=== PATIENT | male | born 1960 | race Caucasian/White ===

== ENCOUNTER 2020-03-13 11:41 | Day surgery (SDC) | payer OTHER, SELFPAY ==
--- NOTE | 2020-03-13 06:13 | W.COLOREPORT ---
Date of service: 03/13/20 Time of Service: 12:24 Colonoscopy Report Date of procedure: 03/13/20 Pre-op diagnosis general: Colon Cancer Screening Post-op diagnosis procedure note: other (multiple polyps) Procedure: Colonoscopy with polypectomy Surgeon: Gertrudis Frazier Anesthesia proc note operative: other (General/ ASA 2/ Piedad Austin CRNA) Estimated blood loss (mL): 5 Pathology: other (Ascending polyp x1, transverse polyp x3, descending polyp, sigmoid polyp x2, rectal polyp x1) Complications: None Disposition: same day Indications: Mr. Steven is a pleasant 60 year old male who was seen back in September for a screening colonoscopy. It was cancelled due to COVID. He is back today for an update to his H&P. He has had no changes in bowel habits, no melena or hematochezia, no unintentional weight loss, no abdominal pain, and no family history of colon cancer. He has diabetes which is well controlled with diet and metformin. He has high blood pressure which is well controlled on atenolol and losartan hydrochlorothiazide. He has no history of MIs or strokes. He has had no chest pain. He is active and is able to walk up a couple flights of stairs without shortness of breath or chest pain. Prep: Miralax/Dulcolax Procedure Start Time: 12:24 Procedure End Time: 13:04 Retraction Time: 33 minutes Findings: multiple polyps Procedure Description: After informed consent was obtained the patient was taken to the procedure room and placed in a left decubitous position. Monitors were applied and a time out was done. The patients name, date of , procedure, allergies to medications and metal in their body was reviewed. The patient was then sedated. Once sedated and comfortable a rectal exam was done. External exam was normal. Internal exam revealed a normal sphincter tone and no palpable masses. The prostate felt smooth. The scope was then introduced and retro-flexed. No internal hemorrhoids were identified. The scope was then advanced to the cecum without difficulty. The ileocecal valve and appendiceal orifice were identified. The prep was good. The scope was then slowly retracted over 33 minutes back into the rectum. Polyps were removed with cold forceps in the ascending colon, transverse colon x3, descending colon, sigmoid colon x2 and rectum. The scope was removed and the patient was woken up and taken back to Same day surgery in stable condition. The patient tolerated the procedure well and there were no immediate complications. Follow up: The patient should follow up in 3-5 years unless they develop changes in bowel habits or other new gastrointestinal complaints.
--- NOTE | 2020-03-13 06:14 | W.PM.DSUDISC ---
Discharge Plan Disposition Patient Disposition: HOME Condition: Good Discharge Details Reason For Visit: Colonoscopy Attending Provider: Gertrudis Frazier Primary Care Provider: Yoan Dorsey Home Meds and New Rx's Prescriptions: Continued coenzyme Q10 125 mg capsule 125 mg PO BID RF: 0 omega 0-rtr-nda-fish oil 1,000 mg (120 mg-180 mg) capsule 2 cap PO BID RF: 0 multivitamin Tablet 1 tab PO DAILY RF: 0 Prostate 2.4 1,200-15-35 drmg-qxjj-nxn capsule 1 cap PO DAILY RF: 0 losartan-hydrochlorothiazide 100-12.5 mg tablet 1 tab PO DAILY Qty: 90 RF: 3 atenolol 100 mg tablet 100 mg PO DAILY Qty: 90 RF: 3 (DME) blood sugar diagnostic Strip See Rx Instructions .ROUTE .MEDSUPPLY Qty: 100 RF: 3 Discontinued polyethylene glycol 3350 17 gram/dose powder 238 g PO ONCE Qty: 238 RF: 0 bisacodyl [Dulcolax (bisacodyl)] 5 mg tablet,delayed release (DR/EC) 5 mg PO ONCE Qty: 4 RF: 0 No Action metformin 500 mg tablet 500 mg PO HS RF: 0 atorvastatin 10 mg tablet 10 mg PO HS RF: 0 Discharge Instructions Instructions: Colorectal Polyps (DC) Additional Instructions: Findings: 8 polyps removed Follow up: 3-5 years Please call if you develop: fevers >101.5 Nausea or Vomiting Abdominal pain that is not transient DAY SURGERY UNIT POST ENDOSCOPY INSTRUCTIONS 1. Because there will be medication in your system for the next 24 hours, you may feel a little sleepy. Your coordination will be affected. Therefore: a. Do not drive or operate dangerous equipment for 24 hours. b. Do not drink alcohol beverages for 24 hours (not even beer). c. Plan to go home and rest for the day. 2. Generally there are no restrictions on your activity after a day or so has gone by, but you may feel a bit fatigued for a few days. 3 After you arrive home you may have a light meal and return to a normal diet as you can tolerate it without feeling sick to your stomach. 4. After surgery, you may feel pain or discomfort. This should be only transient, but if it persists please contact your doctor. 5. If there are any questions regarding the findings of your procedure, please feel free to contact your doctor. 6. If you are unable to contact your doctor with a problem, contact the hospital at [phone]. 7. Continue all your regular medications unless directed otherwise. I understand the above instructions and have no questions. Signature of Patient or Responsible Adult Escort Date/Time Name of Responsible Adult Escort Signature of Nurse Date/Time Activity:: Activity as Tolerated Diet:: As Tolerated Discharge Orders Discharge Orders: Discharge Order (Routine); Ordered 03/13/20 Ordered By: Gertrudis Frazier
[2020-03-13 11:43] VITALS: BP 138/88; PULSE 44; RESP 17; TEMP 36.6; O2SAT 96
[2020-03-13] MEDS: Lactated Ringers 1,000 ML 80 ML IV (12:05)
--- NOTE | 2020-03-13 12:27 | BOWEL_PTH ---
PATIENT: Leonard Steven LOC: [facility] U#:[id number] AGE/SX: 60/M ROOM: RE03/13/[address]: Gertrudis Frazier MD : 1960 BED: DIS: 03/13/2020 SPEC #: [id number] RECD: 03/13/20 16:36 STATUS: WENDY REQ #: [id number] ROCCO: 03/13/20 12:[address]: Gertrudis Frazier DEPT: Surgical Specimen RECD BY: Mariaelena Draper ENTERED: 03/13/20 16:39 SP TYPE: Bowel OTHR DR: Yoan Drosey DO Tissues: 1 - BIOPSY BOWEL 2 - BIOPSY BOWEL 3 - BIOPSY BOWEL 4 - BIOPSY BOWEL 5 - BIOPSY BOWEL Procedures: GROSS AND MICRO LEVEL 4 Comments: [id number]
[2020-03-13 13:45] VITALS: BP 130/78; PULSE 44; RESP 18; TEMP 36.2; O2SAT 98
--- NOTE | 2020-03-14 07:26 | NUR.NOTE ---
Pt discharge completed 03/13/20 remote computer in s2[employer] failed to save discharge documentation. PG Nursing Note:
== END 2020-03-13 14:01 | disposition home or self-care (01) ==
LOC: SUR 11:41
PROVIDERS: PCP Family Medicine; Visit Provider Surgery
PROC: 0DJD8ZZ Inspection of Lower Intestinal Tract, Via Natural or Artificial Opening Endoscopic (ICD-10-PCS; CPT 45378; principal; 2020-03-13 12:30)
DX: Z12.11 Encounter for screening for malignant neoplasm of colon (principal); D12.2 Benign neoplasm of ascending colon; D12.3 Benign neoplasm of transverse colon; D12.5 Benign neoplasm of sigmoid colon; D12.8 Benign neoplasm of rectum; K63.5 Polyp of colon; E11.9 Type 2 diabetes mellitus without complications; Z79.84 Long term (current) use of oral hypoglycemic drugs; I10 Essential (primary) hypertension
CPT/HCPCS: 45380; 88305; J2001; J2704

== ENCOUNTER 2020-04-06 16:32 | Outpatient (REF) | payer OTHER, SELFPAY ==
[2020-04-06 19:22] LABS: Bacteria Negative HPF (Negative); Crystals Negative HPF (Negative); Epithelial Cells Negative HPF (Negative); RBC 0-2 HPF (0-2); WBC 0-2 HPF (0-5)
[2020-04-06 19:23] LABS: C & S Indicated? No; Mucus Negative (Negative)
== END 2020-04-06 16:52 ==
LOC: LBN 16:32
PROVIDERS: PCP Family Medicine; Visit Provider Student in an Organized Health Care Education/Training Program
DX: R31.9 Hematuria, unspecified (principal)
CPT/HCPCS: 81015

== ENCOUNTER 2020-04-11 03:36 | Outpatient (CLI) | payer OTHER, SELFPAY ==
[2020-04-11 09:16] LABS: Anion Gap 8.5 mmol/L (3-11); BUN 26 mg/dL (7-18); CO2 27.5 mmol/L (21.0-32.0); CREATININE 1.09 mg/dL (0.70-1.30); Calcium 9.6 mg/dL (8.5-10.1); Chloride 105 mmol/L (98-107); Glucose 133 mg/dL (74-106); Potassium 4.5 mmol/L (3.5-5.1); Sodium 141 mmol/L (136-145)
[2020-04-11 17:39] LABS: PSA, Diagnostic 2.6 ng/mL (0.0-4.5)
== END 2020-04-11 03:56 ==
PROVIDERS: PCP Family Medicine; Visit Provider Student in an Organized Health Care Education/Training Program
DX: R97.20 Elevated prostate specific antigen [PSA] (principal)
CPT/HCPCS: 36415; 80048; 84153

== ENCOUNTER 2020-05-31 10:39 | Outpatient (REF) | payer OTHER, SELFPAY ==
[2020-05-31 11:18] LABS: Bilirubin Negative (Negative); Blood Moderate (Negative); Clarity Clear (Clear); Glucose Negative (Negative); Ketones Negative (Negative); Leukocyte Esterase Negative (Negative); Nitrite Negative (Negative); Urobilinogen 0.2 EU/dL (Up TO 0.2)
[2020-05-31 11:32] LABS: WBC 0-2 HPF (0-5)
[2020-05-31 11:33] LABS: Bacteria Negative HPF (Negative); C & S Indicated? No; Casts Negative LPF (Negative); Crystals Negative HPF (Negative); Epithelial Cells Rare HPF (Negative); Mucus Negative (Negative); RBC 20-50 HPF (0-2)
== END 2020-05-31 10:59 ==
LOC: LBN 10:39
PROVIDERS: PCP Family Medicine; Visit Provider Nurse Practitioner Gerontology
DX: R31.9 Hematuria, unspecified (principal); R97.20 Elevated prostate specific antigen [PSA]
CPT/HCPCS: 81003; 81015

== ENCOUNTER 2020-06-05 00:58 | Outpatient (CLI) | payer OTHER, SELFPAY ==
--- NOTE | 2020-06-05 07:15 | DI.CT_ITS ---
EXAM: CT ABDOMEN PELVIS WO CLINICAL HISTORY: gross hematuria,r31.9 TECHNIQUE: COMPARISON: No exams were available for comparison FINDINGS: CT examination of the abdomen and pelvis was performed without contrast administration. Images obtained through the lung bases are unremarkable. Note is made of coronary artery calcificati on. The liver appears normal with no evidence of a focal mass. Spleen is unremarkable in appearance.. Gallbladder and bile ducts are unremarkable. Pancreas is unremarkable in appearance. Adrenals appear normal bilaterally. There is an apparent tiny right cortical renal cyst at the lower pole. There are tiny nonobstructing upper pole renal calculi, 1 millimeter in diameter. No hydronephrosis identified on either side. N o left nephrolithiasis. No ureterolithiasis. Urinary bladder shows increased wall thickness suggesting chronic bladder outlet obstruction. Prosta te is markedly enlarged. There is no evidence of abdominal or pelvic adenopathy. Abdominal aorta is of normal diameter and no major vascular abnormality is seen. Appendix is normal. No evidence diverticulitis or bowel obstruction. No significant abdominal wall hernia seen, there is a tiny fat containing umbilical hernia.. Impression: Tiny nonobstructing right renal calculi are noted. Urinary bladder wall thickening noted consistent with chronic bladder outlet obstruction. Coronary artery calcification noted. RADIATION DOSE DELIVERED: 961.71mGy.cm Total DLP 961.71mGy.cm Total DLP DATA REPOSITORY: All CT scans at this facility are submitted to the National Radiology Data Registry (NRDR) Dose Index Registry (DIR) with the [employer] ([employer]). RADIATION OPTIMIZATION: All CT scans at this facility use at least one of these dose optimization te chniques: automated exposure control; mA and/or kV adjustment per patient size (includes targeted exa ms where dose is matched to clinical indication); or iterative reconstruction.
== END 2020-06-05 01:18 ==
PROVIDERS: PCP Family Medicine; Visit Provider Nurse Practitioner Gerontology
DX: N20.0 Calculus of kidney (principal); I25.10 Atherosclerotic heart disease of native coronary artery without angina pectoris; R31.9 Hematuria, unspecified
CPT/HCPCS: 74176

== ENCOUNTER 2020-06-26 02:31 | Outpatient (CLI) | payer OTHER, SELFPAY ==
[2020-06-27 21:11] LABS: COVID-19 RT-PCR Result NEGATIVE (Negative)
== END 2020-06-26 02:51 ==
PROVIDERS: Urology; PCP Family Medicine; Visit Provider Nurse Practitioner Gerontology
DX: Z11.59 Encounter for screening for other viral diseases (principal); Z01.818 Encounter for other preprocedural examination
CPT/HCPCS: U0003

== ENCOUNTER 2020-06-29 10:47 | Day surgery (SDC) | payer OTHER, SELFPAY ==
[2020-06-29 10:59] VITALS: BP 120/74; PULSE 40; RESP 16; TEMP 36.4; O2SAT 97
--- NOTE | 2020-06-29 11:35 | W.PM.HP.N ---
Date of service: 06/29/20 Time of Service: 14:04 Assessment and Plan Assessment and plan (1) Hematuria: Status: Acute Assessment and plan: For cystoscopy and retrograde pyelograms to complete his hematuria workup. We will be prepared to resect any visible tumor we encounter. History of Present Illness History of Present Illness Chief Complaint: Hematuria Narrative: Leonard is a 60-year-old male referred to urology for elevated PSA and gross hematuria. Patient states that he had a TURP done in 2019 and since then he has intermittently had episodes of gross hematuria with various clots sizes. He has never gone into retention due to clots, but prior to his TURP he had multiple episodes of urinary retention. He is currently not on any urology medications but prior to the TURP was on tamsulosin. Currently he expresses no dysuria, frequency, urgency, flank pain, abnormal bleeding or bruising of the skin, abnormal weight loss, or long skeletal bone pains. We were able to obtain his surgical pathology report from his TURP. He had adenocarcinoma of the prostate in 2 of the 130 chips evaluated (1.5% of total volume). His Bambi score was 3+ 3 out of 10. His pre-TURP PSA was 8.0 ng/mL. His current PSA is 2.6 ng/mL. He was evaluated with a noncontrast CT scan. He has all nonobstructing right-sided kidney stones but no other renal abnormalities. He presents for cystoscopy, bilateral retrograde pyelogram and possible transurethral resection of bladder tumor to complete his hematuria work-up. Review of Systems Narrative: No fevers or chills No vision change or dysphasia No thyroid dysfunction No shortness of breath, cough or hemoptysis No chest pain or palpitations No nausea, vomiting, hepatitis, ulcers, jaundice, diarrhea or constipation No seizures, strokes or peripheral neuropathy No bleeding disorders or anemia No gout PFSH Medical History Benign prostatic hyperplasia S/P TURP 09/15. PSA went to 3-4 from 8 s/p TURP. No FU PSA since then. Diabetes Elevated PSA Hx 8, reduced to 3-4 post TURP (08/2018) Hematuria Gross (but tiny) x2 04/01, 04/04/20. [ ] MicroUA, PSA Hyperlipidemia Hypertension Surgical History History of shoulder surgery Left - Repair Dislocation S/P colonoscopy S/P TURP (~2019) Family History Mother Substance abuse Breast cancer & Uterine Cancer Lung cancer Father Substance abuse Diabetes Heart disease Hypertension Maternal Grandfather Lung cancer Social History Smoking/Tobacco Use Status: Never Smoking risk assessment performed?: Yes Alcohol Intake: current Alcohol Intake frequency: a few times a month Alcohol type: beer and wine Drug use: Never Substance use type: does not use Adopted: No Caregiver/Support person: No Household members: significant other and children Housing: house Do you need help understanding health information?: Never 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[employer], [employer] Pets and animals: Yes (Dog-Yohannes) Pets and animals: dog(s) Sexually active: Yes Do you think of yourself as: straight/heterosexual Current gender identity: male What type of physical activity do you participate in: bicycling, weight lifting and other Details: rowing Duration: 30-45 minutes/day Frequency: daily Seatbelt use: always Helmet use: Yes Working smoke detector in home: Yes Fire extinguisher in home: Yes Carbon monox detector in home: Yes Firearms in home: Yes Firearms unloaded and locked: Yes Do you feel safe at home: Yes Do you feel safe in your relationship?: Yes Meds Home Medications and Allergies Home Medications Medication Instructions Recorded Confirmed Type P8-T-dblmk-soy 1 cap PO DAILY 08/16/19 06/29/20 History lmcwg-bwfqwcdcyr-yzdunbtl 1,200 unit-15 unit-35 mcg cap coenzyme Q10 125 mg capsule 125 mg PO BID cap 08/16/19 06/29/20 History multivitamin 1 tab PO DAILY 08/16/19 06/29/20 History omega 6-htk-due-fish oil 1,000 mg 2 cap PO BID cap 08/16/19 06/29/20 History (120 mg-180 mg) capsule losartan 100 1 tab PO DAILY #90 tab 09/30/19 06/29/20 Rx mg-hydrochlorothiazide 12.5 mg tablet atenolol 100 mg tablet 100 mg PO DAILY #90 tab 12/09/19 06/29/20 Rx blood sugar diagnostic #100 each 01/27/20 06/27/20 Rx atorvastatin 10 mg PO HS 03/13/20 06/29/20 History metformin 500 mg PO HS 03/13/20 06/29/20 History Allergies Allergy/AdvReac Type Severity Reaction Status Date / Time crab Allergy Severe Anaphylaxsi Verified 06/29/20 10:56 s shrimp Allergy Severe Anaphylaxsi Verified 06/29/20 10:56 s IVP Dye Allergy Severe Anaphylaxsi Uncoded 06/29/20 10:56 s Lobster Allergy Severe Anaphylaxsi Uncoded 06/29/20 10:56 s Exam Const General: cooperative and no acute distress Neck Neck: supple Resp Effort & Inspection: normal respiratory effort Auscultation: clear to auscultation bilaterally Cardio Rate: regular rate Rhythm: regular rhythm GI Palpation: soft and no masses Neuro General: patient alert, patient awake and patient oriented x3 Results Last Vital Signs Temp 36.4 C L 06/29/20 10:59 Pulse 40 L 06/29/20 10:59 Resp 16 06/29/20 10:59 BP 120/74 06/29/20 10:59 Pulse Ox 97 06/29/20 10:59 COVID-19 Screening Have you, or household traveled for leisure in last 14 days?: No Had IN PERSON contact w/suspected or confirmed C-19 person: No
[2020-06-29] MEDS: Lactated Ringers 1,000 ML 80 ML IV (11:37)
--- NOTE | 2020-06-29 14:00 | DI.RAD_ITS ---
EXAM: XR RETROGRADE IN OR CLINICAL HISTORY: HEMATURIA. TECHNIQUE: Fluoroscopy was provided for Dr. James for guidance with performing retrograde procedure. COMPARISON: No exams were available for comparison FINDINGS: Please see procedure note for details. Fluoro time: 16.4 seconds RADIATION DOSE DELIVERED:
[2020-06-29] MEDS: ceFAZolin 1 GM/50 ML BAG IVPB (14:23)
--- NOTE | 2020-06-29 14:34 | BLADDER_PTH ---
PATIENT: Leonard Steven LOC: [facility] U#:[id number] AGE/SX: 60/M ROOM: RE06/29/[address]: Sivakumar James MD : 1960 BED: DIS: 06/29/2020 SPEC #: [id number] RECD: 06/29/20 17:34 STATUS: WENDY REQ #: [id number] ROCCO: 06/29/20 14:[address]: Sivakumar James DEPT: Surgical Specimen RECD BY: Rachna Parkinson ENTERED: 06/29/20 17:36 SP TYPE: Bladder OTHR DR: Yoan Dorsey DO Tissues: 1 - BLADDER BIOPSY Procedures: GROSS AND MICRO LEVEL 4 Comments: [id number]
[2020-06-29] MEDS: Lidocaine 2% Jelly 6 ML SYR (14:42)
[2020-06-29] MEDS: Omnipaque 300 MG/ML 50 ML BTL (14:42)
--- NOTE | 2020-06-29 14:58 | W.PM.DSUDISC ---
Discharge Plan Disposition Patient Disposition: HOME Condition: Stable Discharge Details Reason For Visit: surgery Attending Provider: Sivakumar James Primary Care Provider: Yoan Dorsey Home Meds and New Rx's Prescriptions: No Action coenzyme Q10 125 mg capsule 125 mg PO BID RF: 0 omega 1-bls-jcr-fish oil 1,000 mg (120 mg-180 mg) capsule 2 cap PO BID RF: 0 multivitamin Tablet 1 tab PO DAILY RF: 0 Prostate 2.4 1,200-15-35 lxso-jcxb-ywa capsule 1 cap PO DAILY RF: 0 losartan-hydrochlorothiazide 100-12.5 mg tablet 1 tab PO DAILY Qty: 90 RF: 3 atenolol 100 mg tablet 100 mg PO DAILY Qty: 90 RF: 3 (DME) blood sugar diagnostic Strip See Rx Instructions .ROUTE .MEDSUPPLY Qty: 100 RF: 3 metformin 500 mg tablet 500 mg PO HS RF: 0 atorvastatin 10 mg tablet 10 mg PO HS RF: 0 Discharge Instructions Additional Instructions: Followup 1 to 2 weeks to review surgical pathology Activity:: Activity as Tolerated Shower/Bathe:: 24 hours Diet:: As Tolerated Discharge Orders Discharge Orders: Discharge Order (Routine); Ordered 06/29/20 Ordered By: Sivakumar James DS: Diagnosis Discharge Diagnosis (1) Hematuria: Status: Acute
--- NOTE | 2020-06-29 15:01 | ROE_ITS ---
Date of service: 06/29/20 Time of Service: 15:01 Operative Note Operative Note DATE OF PROCEDURE: 06/29/20 PRE-OP DIAGNOSIS: Gross hematuria POST-OP DIAGNOSIS: same PROCEDURE: cystoscopy, bladder biopsy, left retrograde pyelogram SURGEON: Sivakumar James ANESTHESIA: other (general without intubation) ESTIMATED BLOOD LOSS: 10 PATHOLOGY: other (bladder biopsy) COMPLICATIONS: None Patient was transported to: same day Patient's condition: stable Indications: This is a 60-year-old gentleman with a past history of urinary retention. He had undergone transurethral resection of the prostate at an outside facility. His surgical pathology showed 2 chips with Bambi score 3+ 3 out of 10 adenocarcinoma of the prostate. Since the procedure, he has had intermittent gross hematuria. He has been evaluated with a CT scan without contrast. The scan showed a few small stones in the right kidney. He presents now for cystoscopy and retrograde pyelogram to complete his hematuria work. Findings: Small patch of erythematous mucosa on the right anterior bladder wall. Bullous edema around the right ureteral orifice Procedure Description: The patient was brought to the operating room on 06/29/2020. After successful induction of general anesthesia without intubation, he was placed in the dorsal lithotomy position. His genitalia was prepped and draped. 2% Xylocaine jelly was instilled into the urethra to act as a local anesthetic. A 22 [place] rigid cystoscope was passed through the urethra into the bladder. The urethra and bladder were inspected with a 30 degree lens. The pendulous, bulbous and membranous urethra was all appeared normal with no strictures. The prostatic urethra showed some remaining adenoma especially up towards the bladder neck anteriorly. No active bleeding was seen from the prostatic mucosa. The bladder neck was entered and the bladder mucosa was inspected. The left ureteral orifice appeared normal. The right orifice had some surrounding bullous edema. I was able to cannulate the left orifice with a 6 [place] Luc[place] access catheter but I was unable to cannulate the right orifice. We then did a retrograde pyelogram by injecting Omnipaque through the access catheter under fluoroscopic guidance. The left ureter and collecting system appeared normal. The ureter drained promptly on 5-minute drainage film. We then inspected the remainder the bladder and the only abnormality was a small less than 2 cm erythematous patch of mucosa on the right anterior bladder wall. I went ahead and biopsied the area with cold cup biopsy forceps and sent the biopsy to pathology for permanent sections. The patient tolerated the procedure well with no complications. He was taken back to the day surgery unit in stable condition.
[2020-06-29] MEDS: Phenazopyridine 200 MG TAB PO (15:25)
[2020-06-29 15:27] VITALS: BP 105/61; PULSE 42; RESP 18; TEMP 36.6; O2SAT 94
== END 2020-06-29 16:05 | disposition home or self-care (01) ==
PROVIDERS: PCP Family Medicine; Visit Provider Urology
PROC: (CPT 74450; principal; 2020-06-29 13:15)
DX: R31.0 Gross hematuria (principal); E11.9 Type 2 diabetes mellitus without complications; I10 Essential (primary) hypertension; E78.5 Hyperlipidemia, unspecified
CPT/HCPCS: 52204; 52005; 88305; NC; 74420; J0690; J1100; J2405; Q9967

== ENCOUNTER 2021-01-10 08:23 | Outpatient (CLI) | payer OTHER, SELFPAY ==
[2021-01-10 22:25] LABS: PSA, Diagnostic 2.9 ng/mL (0.0-4.5)
== END 2021-01-10 08:24 | disposition home or self-care (01) ==
PROVIDERS: PCP Family Medicine; Visit Provider Urology
DX: C61 Malignant neoplasm of prostate (principal)
CPT/HCPCS: 36415; 84153

== ENCOUNTER 2022-01-16 02:08 | Outpatient (CLI) | payer OTHER, SELFPAY ==
[2022-01-16 13:03] LABS: Anion Gap 6.5 mmol/L (3-11); BUN 20 mg/dL (7-18); CO2 29.5 mmol/L (21.0-32.0); Calcium 9.1 mg/dL (8.5-10.1); Chloride 101 mmol/L (98-107); Glucose 135 mg/dL (74-106); Potassium 4.1 mmol/L (3.5-5.1); Sodium 137 mmol/L (136-145)
[2022-01-16 23:04] LABS: PSA, Diagnostic 3.6 ng/mL (<=4.5)
[2022-01-17 09:18] LABS: Hepatitis C Ab w Rflx HCV PCR Negative (Negative)
== END 2022-01-16 02:09 | disposition home or self-care (01) ==
LOC: LBO 02:08
PROVIDERS: PCP Family Medicine; Visit Provider Nurse Practitioner Gerontology
DX: E11.9 Type 2 diabetes mellitus without complications (principal); C61 Malignant neoplasm of prostate; Z11.3 Encounter for screening for infections with a predominantly sexual mode of transmission; Z11.59 Encounter for screening for other viral diseases
CPT/HCPCS: 36415; 80048; 86803; 84153

== ENCOUNTER 2022-02-19 09:14 | Outpatient (REF) | payer OTHER, SELFPAY | END 2022-02-19 09:15 | disposition home or self-care (01) | LOC: LBN 09:14 | PROVIDERS: PCP Family Medicine; Visit Provider Family Medicine ==

== ENCOUNTER 2022-08-19 02:46 | Outpatient (CLI) | payer OTHER, SELFPAY ==
[2022-08-19 17:25] LABS: PSA, Diagnostic 3.5 ng/mL (<=4.5)
== END 2022-08-19 02:47 | disposition home or self-care (01) ==
LOC: LBO 02:46
PROVIDERS: PCP Family Medicine; Visit Provider Nurse Practitioner Gerontology
DX: C61 Malignant neoplasm of prostate (principal); R97.20 Elevated prostate specific antigen [PSA]
CPT/HCPCS: 36415; 84153

== ENCOUNTER 2023-01-29 02:39 | Outpatient (CLI) | payer OTHER, SELFPAY ==
[2023-01-29 17:07] LABS: ALT 35 U/L (16-63); AST 21 U/L (15-37); Albumin 4.2 g/dL (3.4-5.0); Alkaline Phosphatase 45 U/L (46-116); Anion Gap 8.7 mmol/L (3-11); BUN 20 mg/dL (7-18); Bilirubin, Total 0.5 mg/dL (0.2-1.0); CO2 30.3 mmol/L (21.0-32.0); Calcium 9.3 mg/dL (8.5-10.1); Chloride 104 mmol/L (98-107); Estimated GFR 83.52 (mL/min/1.73m2); Glucose 107 mg/dL (74-106); Potassium 4.2 mmol/L (3.5-5.1); Sodium 143 mmol/L (136-145); Total Protein 7.5 g/dL (6.4-8.2); Uric Acid 7.1 mg/dL (3.5-7.2)
[2023-01-29 17:22] LABS: Hemoglobin A1C 6.6 % (<5.7)
[2023-01-30 20:09] LABS: PSA, Diagnostic 3.1 ng/mL (<=4.5)
== END 2023-01-29 02:40 | disposition home or self-care (01) ==
LOC: LBO 02:39
PROVIDERS: Nurse Practitioner Gerontology; PCP Family Medicine; Referring Provider Emergency Medicine; Visit Provider Emergency Medicine
DX: E11.9 Type 2 diabetes mellitus without complications (principal); I10 Essential (primary) hypertension; M10.9 Gout, unspecified; C61 Malignant neoplasm of prostate; N40.0 Benign prostatic hyperplasia without lower urinary tract symptoms; R31.9 Hematuria, unspecified
CPT/HCPCS: 36415; 80053; 83036; 84153; 84550

== ENCOUNTER 2023-07-24 09:11 | Day surgery (SDC) | payer OTHER, SELFPAY ==
--- NOTE | 2023-07-23 20:01 | W.PM.DSUDISC ---
Date of service: 07/24/23 Time of Service: 11:50 Discharge Plan Disposition Patient Disposition: Home Condition: Good Discharge Details Reason For Visit: Screening colonoscopy Attending Provider: Hamlet Gr Primary Care Provider: Yoan Dorsey Home Meds and New Rx's Prescriptions: Continued metformin 1,000 mg tablet 1,000 mg PO BID Qty: 180 3RF atenolol 100 mg tablet 100 mg PO DAILY Qty: 90 3RF atorvastatin 10 mg tablet 10 mg PO HS Qty: 90 3RF losartan-hydrochlorothiazide 100-12.5 mg tablet 1 tab PO DAILY Qty: 90 3RF coenzyme Q10 125 mg capsule 125 mg PO BID omega 0-kqy-mhd-fish oil 1,000 mg (120 mg-180 mg) capsule 2 cap PO BID multivitamin Tablet 1 tab PO DAILY Rx Instructions: 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 multivitamin and mineral supplement Prostate 2.4 1,200-15-35 khxf-xdxi-qgx capsule 1 cap PO DAILY B-12 with Magnesium PO Prostate SR 160-250 mg capsule 1 cap PO BID (DME) blood sugar diagnostic Strip See Rx Instructions .ROUTE .MEDSUPPLY Qty: 100 3RF Rx Instructions: E11.9 to test Blood sugar daily to maintain HGB AIC <7, dispense brand paid by insurance (DME) Dexcom G6 Transmitter Device See Rx Instructions .Route Qty: 1 6RF Rx Instructions: As directed allopurinol 300 mg tablet 300 mg PO DAILY Qty: 90 3RF (DME) Dexcom G7 Engineer Specialist Misc See Rx Instructions .Route Qty: 1 1RF Rx Instructions: As directed. DX: E11.9, to keep HbA1c below 6.5% (DME) Dexcom G7 Sensor Device See Rx Instructions .Route Qty: 1 6RF Rx Instructions: As directed As directed. DX: E11.9, to keep HbA1c below 6.5% Discontinued bisacodyl [Dulcolax (bisacodyl)] 5 mg tablet,delayed release (DR/EC) 5 mg PO ONCE Qty: 4 0RF Rx Instructions: Take per colonoscopy instructions provided by ordering providers office polyethylene glycol 3350 17 gram/dose powder 17 g PO ONCE Qty: 238 0RF Rx Instructions: Take per colonoscopy instructions provided by ordering providers office No Action acetaminophen [Acetaminophen Extra Strength] 500 mg tablet 500 mg PO ONCE Discharge Instructions Additional Instructions: Leonard, we were able to complete your colonoscopy today without any issues. Your prep was great. We could see everything very nicely. I did not find any polyps on today's colonoscopy. Because of the types of polyps that you had removed previously, tubular adenomas, I do recommend another 5-year interval for your next colonoscopy. If that 1 is also negative, then you could extend this to 10-year intervals. If you have any questions in the meantime, please do not hesitate to call at any point. 1. If tolerated, consume a soft, low fiber diet for 1-2 days. 2[address] Do not drive, drink alcohol, operate machinery, make critical decisions, or do activities that require coordination or balance for 24 hours. 3. Because air was put into your colon during the procedure, expelling air from your rectum (passing gas or farting) is normal. 4. You may not have a bowel movement for 1-3 days because of the colonoscopy prep. This is normal. 5. Go directly to the emergency room if you notice any of the following: Develop chills (warm to touch), or if you have a thermometer and your temperature is above 101 Difficulty breathing or difficultly swallowing Persistent vomiting Severe abdominal pain, other than gas cramps Severe chest pain Black, tarry stools Any bleeding ? exceeding one tablespoon 6. Call your physician if the site where your intravenous was started becomes red, swollen, painful, and warm to touch. 7. Your physician has reviewed your pre-procedure medications. Please continue to take those medications as previously ordered. You will be given specific information/education regarding any changes to your medications before leaving. Activity:: Activity as Tolerated Diet:: As Tolerated Discharge Orders Discharge Orders: Discharge Order (Routine); Ordered 07/23/23 Ordered By: Hamlet Gr DS: Diagnosis Discharge Diagnosis (1) Encounter for screening colonoscopy: Status: Acute Asessment and Plan: Negative screening colonoscopy today. Based on the polyps that were removed on the last colonoscopy, I recommend 1 more 5-year interval. If that is negative, then we can extend to 10 years.
--- NOTE | 2023-07-23 20:03 | W.COLOREPORT ---
Date of service: 07/24/23 Time of Service: 11:51 Colonoscopy Report Date of procedure: 07/24/23 Pre-op diagnosis general: screening colonoscopy Post-op diagnosis procedure note: other (Negative screening colonoscopy) Procedure: colonoscopy Surgeon: Hamlet Gr Anesthesia Type: General:No Airway Estimated blood loss (mL): 0 Pathology: none sent Complications: None Disposition: same day Indications: Leonard is 63 years old, and has had a history of adenomatous polyps in the past. He needs his next screening colonoscopy as part of routine health maintenance. Prep: Miralax/Dulcolax Procedure Start Time: 10:21 Procedure End Time: 10:41 Retraction Time: 12 Findings: Negative screening colonoscopy Procedure Description: After the induction of monitored anesthetic care, and with the patient in left lateral decubitus position, I began by performing an external anorectal exam.? Perineum and skin were normal, as was the anal verge.? There was no evidence of external hemorrhoids.? Next, I performed a digital rectal exam.? I did not appreciate any abnormal findings.? Next, I advanced a colonoscope into the rectal vault.? I performed retroflexion.? This was normal.? Using insufflation, I then advanced the colonoscope beyond the rectal folds and into the sigmoid colon before advancing towards the cecum.? The cecum was stained with succus, but after irrigation, visualization was adequate. The scope was noted to be in the cecum by identification of the ileocecal valve and appendiceal orifice.? I then began withdrawing the colonoscope using repeated irrigation as necessary for full evaluation of the colonic mucosa. ?Once the scope was withdrawn to the level of the rectum, great care was taken to examine portions of the rectal folds.? I did not see any signs of tumors, polyps, or any other abnormalities. Finally, the scope was withdrawn and the patient was brought to the same-day surgery recovery unit as the anesthetic wore off. ?The findings and instructions were shared with the patient prior to discharge. [place] Bowel Prep [place] Bowel Prep Right Colon: 2 Left Colon: 3 Transverse Colon: 3 Total Score: 8
[2023-07-24 09:27] VITALS: BP 119/81; PULSE 44; RESP 18; TEMP 36.1; O2SAT 98
[2023-07-24] MEDS: Lactated Ringers 1,000 ML 80 ML IV (10:01)
--- NOTE | 2023-07-24 11:09 | ANES.PREOP_ITS ---
General Info Date of Service Date Performed: 07/24/23 Height: 5 ft 6 in Weight: 82.6 kg Body Mass Index (BMI): 29.4 Surgical Procedure: Operation Date: 07/24/23 10:50 Proposed Procedure Side Surgeon olga Gr MD Meds Allergies and Home Medications Allergies Allergy/AdvReac Type Severity Reaction Status Date / Time crab Allergy Severe Anaphylaxsi Verified 07/24/23 09:38 s shrimp Allergy Severe Anaphylaxsi Verified 07/24/23 09:38 s iodine Allergy Verified 07/24/23 09:38 IVP Dye Allergy Severe Anaphylaxsi Uncoded 07/24/23 09:38 s Lobster Allergy Severe Anaphylaxsi Uncoded 07/24/23 09:38 s Home Medication Medication Instructions Recorded I6-R-ymfxp-soy 1 cap PO DAILY 08/16/19 gnifg-pkouilxukj-ozszdmgo 1,200 unit-15 unit-35 mcg cap (Prostate 2.4) coenzyme Q10 125 mg capsule 125 mg PO BID 08/16/19 multivitamin 1 tab PO DAILY 08/16/19 omega 1-nas-ssh-fish oil 1,000 mg 2 cap PO BID 08/16/19 (120 mg-180 mg) capsule blood sugar diagnostic #100 ea 01/27/20 B-12 with Magnesium PO 02/05/21 saw palmetto fruit extract 160 1 cap PO BID 02/19/22 mg-phytosterol cmb.no.2 250 mg capsule (Prostate SR) blood-glucose transmitter (Dexcom #1 ea 10/24/22 G6 Transmitter device) allopurinol 300 mg tablet 300 mg PO DAILY #90 tabs 03/11/23 atenolol 100 mg tablet 100 mg PO DAILY #90 tabs 05/27/23 atorvastatin 10 mg tablet 10 mg PO HS #90 tabs 05/27/23 losartan 100 1 tab PO DAILY #90 tabs 05/27/23 mg-hydrochlorothiazide 12.5 mg tablet metformin 1,000 mg tablet 1,000 mg PO BID #180 tabs 05/27/23 blood-glucose meter,continuous #1 ea 07/07/23 (Dexcom G7 Termite Exterminator Helper) blood-glucose sensor (Dexcom G7 #1 ea 07/07/23 Sensor device) acetaminophen 500 mg tablet 500 mg PO ONCE 07/24/23 (Acetaminophen Extra Strength) Current Visit Medications: Current Medications Generic Name Dose Route Start Last Admin Trade Name Freq PRN Reason Stop Dose Admin Hyoscyamine Sulfate 0.125 mg 07/23/23 20:04 Hyoscyamine 0.125 Mg Sl/Oral/Chew SL 08/22/23 20:03 DIRECTED PRN Ringer's Solution 1,000 mls @ 80 mls/hr 07/24/23 06:00 07/24/23 10:01 IV 07/27/23 23:59 80 mls/hr INFUSION SANDRITA Administration IV Miscellaneous Supplies 1 each 07/24/23 06:00 Iv Access IV 07/27/23 23:59 DIRECTED SANDRITA Ondansetron HCl 4 mg 07/23/23 20:04 Ondansetron 4 Mg/2 Ml Vial IVP 08/22/23 20:03 Q4H PRN PRN Nausea / Vomiting Sodium Chloride 0 ml 07/24/23 06:00 Normal Saline Flush 10 Ml Syr IV 07/27/23 23:59 PRN PRN Sodium Chloride 0 ml 07/24/23 06:00 Normal Saline 10 Ml Vial IJ 07/27/23 23:59 DIRECTED PRN Sterile Water 0 ml 07/24/23 06:00 Water,Injection,Sterile 10 Ml Vial IJ 07/27/23 23:59 DIRECTED PRN PFSH Active Problems Active Problems: Problem Status Onset Code Encounter for screening colonoscopy Z12.11 Diabetes mellitus type 2 in nonobese E11.9 Impacted cerumen, left ear H61.22 Gout M10.9 Cerumen impaction H61.20 Perioral dermatitis L71.0 Ganglion M67.40 Sensorineural hearing loss (SNHL) of both ears H90.3 Elevated PSA R97.20 Hematuria R31.9 Tubular adenoma D36.9 Diabetes E11.9 Benign prostatic hyperplasia N40.0 Hypertension I10 Hyperlipidemia E78.5 Surgical History Surgical History History of shoulder surgery Left - Repair Dislocation S/P colonoscopy S/P TURP (~2019) Tobacco Smoking/Tobacco Use Status: Never Passive smoking exposure: No Alcohol Alcohol Intake: current Alcohol intake frequency: a few times a month Alcohol type: beer and wine Substance Use Substance use: Never Substance use type: does not use Details: alcohol: t-4,one glass Vital Signs and Lab Results Vital Signs Most Recent Vital Signs in EMR: Most Recent Vital Signs Temp Pulse Resp BP Pulse Ox 36.1 C L 44 L 18 119/81 98 07/24/23 09:27 07/24/23 09:27 07/24/23 09:27 07/24/23 09:27 07/24/23 09:27 Point of Care Results Point of Care Results: Finger Stick Blood Glucose 148 07/24/23 09:31 Lab Results Blood Type / Crossmatch: No Data to Display Complete Blood Count: No Data to Display Complete Metabolic Panel: No Data to Display Liver Function Panel: No Data to Display Coagulation Panel: No Data to Display Cardiac Panel: No Data to Display Arterial Blood Gas: No Data to Display Venous Blood Gas: No Data to Display Pancreas Panel: No Data to Display Thyroid Panel: No Data to Display Infectious Disease: No Data to Display Blood Cultures: No Data to Display Toxicology Panel: No Data to Display Anesthesia Assessment and Plan Anesthesia History Personal History: No History of Anesthesia Complications Family History: No Family History of Anesthesia Complications Exercise Tolerance Exercise Tolerance: Metabolic Equivalents>4 Pertinent Negatives Pertinent Negatives: No Symptoms of GERD, No Major Cardiovascular Symptoms or Complaints and No Major Pulmonary Symptoms or Complaints Cardiac & Pulmonary Exam Cardiac Exam: Normal S1/S2 Heart Sounds Pulmonary Exam: Clear Bilateral Breath Sounds Implantable Cardiac Device Does patient have a Pacemaker or an ICD?: No Airway Exam Known Difficult Airway: No Mallampati Class: 2 Mouth Opening: Normal (> 3cm) Thyromental Distance: Greater than 3 cm Neck Range of Motion: Full ROM Neck Circumference: Normal Teeth Condition: Normal Dentition ASA Classification ASA Score: ASA 2 Emergency Case?: No NPO Status NPO Status: NPO Clears >2 hours, Solids >8 hours Anesthesia Plan Resuscitation Status: Full Code Anesthesia Technique: General Anesthesia Airway Planned: Natural Airway Monitors Used: Standard Monitors
[2023-07-24 11:10] VITALS: BMI 29.4
[2023-07-24 11:47] VITALS: BP 91/51; PULSE 45; RESP 16; TEMP 36.3; O2SAT 96
[2023-07-24 12:15] VITALS: BP 120/79; PULSE 50; RESP 16; TEMP 36.3; O2SAT 94
--- NOTE | 2023-07-24 12:28 | W.ANESPOSTOP ---
Postoperative Evaluation Date, Time and Location Date Performed: 07/24/23 Time Performed: 12:28 Patient Location: Day Surgery Unit Vital Signs Most Recent Imported Vital Signs: Most Recent Vital Signs Temp Pulse Resp BP Pulse Ox 36.3 C L 45 L 16 91/51 L 96 07/24/23 11:47 07/24/23 11:47 07/24/23 11:47 07/24/23 11:47 07/24/23 11:47 Pain Score Most Recent Pain Score: Most Recent Pain Score Pain Level 0 07/24/23 11:47 Assessment Mental Status: Awake (Alert & Oriented to Patient Baseline) Airway and Respiratory Function: Patent airway with normal (patient baseline) respiratory exam Cardiovascular Function: Hemodynamically Stable Hydration Status: Adequately Hydrated Nausea & Vomiting: No Nausea or Vomiting Pain: Pt. Denies Any Pain Peripheral Nerve Block: Patient did not receive a nerve block
== END 2023-07-24 12:51 | disposition home or self-care (01) ==
LOC: SUR 09:11
PROVIDERS: PCP Family Medicine; Visit Provider Surgery
PROC: 0DJD8ZZ Inspection of Lower Intestinal Tract, Via Natural or Artificial Opening Endoscopic (ICD-10-PCS; CPT 45378; principal; 2023-07-24 10:45)
DX: Z12.11 Encounter for screening for malignant neoplasm of colon (principal); Z86.010 Personal history of colon polyps; E11.9 Type 2 diabetes mellitus without complications; I10 Essential (primary) hypertension
CPT/HCPCS: 45378; J2001

== ENCOUNTER 2023-08-20 02:59 | Outpatient (CLI) | payer BC, SELFPAY | END 2023-08-20 03:00 | disposition home or self-care (01) | LOC: LBO 03:00 | PROVIDERS: PCP Family Medicine; Visit Provider Nurse Practitioner Gerontology | DX: C61 Malignant neoplasm of prostate (principal); R97.20 Elevated prostate specific antigen [PSA]; R31.9 Hematuria, unspecified | CPT/HCPCS: 36415; 84153 ==

== ENCOUNTER 2023-08-27 09:00 | Outpatient (REF) | payer BC, SELFPAY ==
[2023-08-27 11:04] LABS: Bilirubin Negative (Negative); Blood Moderate (Negative); Clarity Sl Cloudy (Clear); Glucose Negative (Negative); Ketones Negative (Negative); Leukocyte Esterase Small (Negative); Nitrite Negative (Negative); Specific Gravity 1.025 (1.005-1.025); Urobilinogen 0.2 mg/dL (Up to 0.2); pH 6.5 (5-8)
[2023-08-27 11:11] LABS: Bacteria Rare HPF (Negative); Crystals Negative HPF (Negative); Epithelial Cells Rare HPF (Negative); Mucus Trace (Negative)
[2023-08-27 11:12] LABS: C & S Indicated? C&S Done As Ordered; Casts Negative LPF (Negative)
== END 2023-08-27 09:01 | disposition home or self-care (01) ==
LOC: LBN 09:00
PROVIDERS: PCP Family Medicine; Visit Provider Nurse Practitioner Gerontology
DX: R31.9 Hematuria, unspecified (principal); R97.20 Elevated prostate specific antigen [PSA]
CPT/HCPCS: 81003; 81015; 87086

== ENCOUNTER 2023-10-13 06:17 | Day surgery (SDC) | payer BC, SELFPAY ==
[2023-10-13] VITALS (7 sets, daily range): BP systolic 119–133; BP diastolic 73–91; PULSE 43–94; RESP 13–16; TEMP 36–36.4; O2SAT 94–98; BMI 29.5
[2023-10-13] MEDS: Lactated Ringers 1,000 ML 80 ML IV (07:00)
--- NOTE | 2023-10-13 07:04 | W.PM.HP.N ---
Date of service: 10/13/23 Time of Service: 07:04 Assessment and Plan Assessment and plan (1) Hematuria: Status: Acute Assessment and plan: We will perform cystoscopy and bilateral retrograde pyelogram and be prepared to do a transurethral resection of any visible bladder tumor. (2) Prostate cancer: Status: Chronic History of Present Illness History of Present Illness Chief Complaint: Hematuria Narrative: This is a 63-year-old gentleman who has a history of an elevated PSA and lower urinary tract symptoms. He ultimately underwent a transurethral resection of the prostate. His lower urinary tract symptoms improved, but he was found to have 2 small foci of adenocarcinoma of the prostate on his TURP specimen. We have been monitoring him with PSA levels every 6 months. His PSA has not increased over time. He does have episodes of gross painless hematuria an average of every 3 months. He has had clots at times but no retention. He has persistent microscopic hematuria. He had a hematuria workup back in 2019 which showed no significant pathology on bladder biopsy. He presents now for repeat cystoscopy as his hematuria has persisted. Review of Systems Narrative: No fevers or chills Decreased hearing acuity. No vision change or dysphasia Hx diabetes. No thyroid dysfunction No shortness of breath, cough or hemoptysis No chest pain or palpitations No nausea, vomiting, hepatitis, ulcers, jaundice No seizures, strokes or peripheral neuropathy No bleeding disorders or anemia Hx gout - last episode 8 months ago PFSH All Active Problems (Updated 10/13/23 @ 07:09 by Sivakumar James MD) Prostate cancer (Chronic) Encounter for screening colonoscopy (Acute) Diabetes mellitus type 2 in nonobese (Acute) Impacted cerumen, left ear (Acute) Gout (Chronic) Cerumen impaction (Acute) Perioral dermatitis (Acute) Ganglion (Acute) Sensorineural hearing loss (SNHL) of both ears (Acute) Hematuria (Acute) Gross (but tiny) x2 04/01, 04/04/20. [ ] MicroUA, PSA Tubular adenoma (Acute) colo per Dr. Frazier 03/13/20 Diabetes (Chronic) Hypertension (Chronic) Hyperlipidemia (Acute) Medical History (Updated 10/13/23 @ 07:09 by Sivakumar James MD) Benign prostatic hyperplasia S/P TURP 09/15. PSA went to 3-4 from 8 s/p TURP. No FU PSA since then. Elevated PSA Hx 8, reduced to 3-4 post TURP (08/2018) Surgical History S/P colonoscopy (~06/2023) History of shoulder surgery Left - Repair Dislocation S/P TURP (~2018) Family History Mother Substance abuse Breast cancer & Uterine Cancer Lung cancer Father Substance abuse Diabetes Heart disease Hypertension Maternal Grandfather Lung cancer Social History (Updated 07/17/23 @ 12:41 by JENNIFER Jean) Smoking/Tobacco Use Status: Never Smoking risk assessment performed?: Yes Alcohol Intake: current Alcohol Intake frequency: a few times a month Alcohol type: beer and wine Drug use: Never Substance use type: does not use Adopted: No Caregiver/Support person: No Foster care: No Household members: spouse and children Housing: house Number of Children: 2 number of grandchildren: 0 Communication Needs: Hard of Hearing and Corrective Lenses Education Level: college Details: BS Degree Do you need help understanding health information?: Rarely 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, [employer] Pets and animals: Yes (Dog-Yohannes) Pets and animals: dog(s) Sexually active: Yes Do you think of yourself as: straight/heterosexual Current gender identity: male What is your relationship status?: living with partner How often do you talk on the phone with friends or family?: once per week Panel score (0-1 are the most socially isolated patients): 1 What type of physical activity do you participate in: bicycling, weight lifting and other Details: rowing Duration: 30-45 minutes/day Frequency: 3-4 times per week Sera/Jehovah'S Witness: Temple Special sera needs: No Seatbelt use: always Helmet use: Yes Drive intox or ride w/intox motor coach driver: No Working smoke detector in home: Yes Fire extinguisher in home: Yes Carbon monox detector in home: Yes Firearms in home: Yes Firearms unloaded and locked: Yes Do you feel safe at home: Yes Additional Social history: unable to assess privately Meds Allergies and Home Medications Allergies Allergy/AdvReac Type Severity Reaction Status Date / Time crab Allergy Severe Anaphylaxsi Verified 10/13/23 06:24 s shrimp Allergy Severe Anaphylaxsi Verified 10/13/23 06:24 s iodine Allergy Other (See Verified 10/13/23 06:24 Comment) IVP Dye Allergy Severe Anaphylaxsi Uncoded 10/13/23 06:24 s Lobster Allergy Severe Anaphylaxsi Uncoded 10/13/23 06:24 s Home Medications Medication Instructions Recorded Confirmed Type O0-F-qmwyi-soy 1 cap PO DAILY 08/16/19 10/13/23 History jqtmq-zneakfidmi-qrsjrrcl 1,200 unit-15 unit-35 mcg cap (Prostate 2.4) coenzyme Q10 125 mg capsule 125 mg PO BID 08/16/19 10/13/23 History multivitamin 1 tab PO DAILY 08/16/19 10/13/23 History omega 3-xsd-opp-fish oil 1,000 mg 2 cap PO BID 08/16/19 10/13/23 History (120 mg-180 mg) capsule blood sugar diagnostic #100 ea 01/27/20 08/12/23 Rx B-12 with Magnesium 1 tab PO DIRECTED 02/05/21 10/13/23 History saw palmetto fruit extract 160 1 cap PO BID 02/19/22 10/13/23 History mg-phytosterol cmb.no.2 250 mg capsule (Prostate SR) blood-glucose transmitter (Dexcom #1 ea 10/24/22 08/12/23 Rx G6 Transmitter device) acetaminophen 500 mg tablet 500 mg PO ONCE 07/24/23 10/13/23 History (Acetaminophen Extra Strength) allopurinol 300 mg tablet 300 mg PO DAILY #90 tabs 09/19/23 10/13/23 Rx atorvastatin 10 mg tablet 10 mg PO HS #90 tabs 09/19/23 10/13/23 Rx blood-glucose meter,continuous #1 ea 09/19/23 Rx (Dexcom G7 Maintainer [employer]) blood-glucose sensor (Dexcom G7 #1 ea 09/19/23 Rx Sensor device) losartan 100 1 tab PO DAILY #90 tabs 09/19/23 10/13/23 Rx mg-hydrochlorothiazide 12.5 mg tablet metformin 1,000 mg tablet 1,000 mg PO BID #180 tabs 09/19/23 10/13/23 Rx glipizide 2.5 mg tablet 2.5 mg PO DAILY #90 tabs 10/02/23 10/13/23 Rx atenolol 100 mg tablet 100 mg PO HS 10/08/23 10/13/23 History calcium carbonate 200 mg calcium 200 mg PO ONCE 10/13/23 10/13/23 History (500 mg) chewable tablet (Tums) Exam Const General: cooperative and comfortable Neck Neck: supple Resp Effort & Inspection: normal respiratory effort Auscultation: clear to auscultation bilaterally Cardio Rate: regular rate Rhythm: regular rhythm GI Palpation: soft and no masses Neuro General: patient alert, patient awake and patient oriented x3 Results Last Vital Signs Temp 36.4 C L 10/13/23 06:33 Pulse 43 L 10/13/23 06:33 Resp 15 10/13/23 06:33 BP 133/88 10/13/23 06:33 Pulse Ox 96 10/13/23 06:33 Time Spent Time spent with Patient: <40 minutes Time was spent: other
--- NOTE | 2023-10-13 07:04 | W.ANESPRE ---
General Info Date of Service Date Performed: 10/13/23 Height: 5 ft 6 in Weight: 83 kg Body Mass Index (BMI): 29.5 Surgical Procedure: Operation Date: 10/13/23 07:40 Proposed Procedure Side Surgeon p Cystoscopy/Retrograde Bilateral Sivakumar James MD s ?Transurethral Resection Bladder Tumor vs fulgaration of prostate bleeding Sivakumar James MD Meds Allergies and Home Medications Allergies Allergy/AdvReac Type Severity Reaction Status Date / Time crab Allergy Severe Anaphylaxsi Verified 10/13/23 06:24 s shrimp Allergy Severe Anaphylaxsi Verified 10/13/23 06:24 s iodine Allergy Other (See Verified 10/13/23 06:24 Comment) IVP Dye Allergy Severe Anaphylaxsi Uncoded 10/13/23 06:24 s Lobster Allergy Severe Anaphylaxsi Uncoded 10/13/23 06:24 s Home Medication Medication Instructions Recorded E3-B-yrgcw-soy 1 cap PO DAILY 08/16/19 oslfw-nfojhdwsqi-ojdtblzr 1,200 unit-15 unit-35 mcg cap (Prostate 2.4) coenzyme Q10 125 mg capsule 125 mg PO BID 08/16/19 multivitamin 1 tab PO DAILY 08/16/19 omega 5-cqb-lgn-fish oil 1,000 mg 2 cap PO BID 08/16/19 (120 mg-180 mg) capsule blood sugar diagnostic #100 ea 01/27/20 B-12 with Magnesium 1 tab PO DIRECTED 02/05/21 saw palmetto fruit extract 160 1 cap PO BID 02/19/22 mg-phytosterol cmb.no.2 250 mg capsule (Prostate SR) blood-glucose transmitter (Dexcom #1 ea 10/24/22 G6 Transmitter device) acetaminophen 500 mg tablet 500 mg PO ONCE 07/24/23 (Acetaminophen Extra Strength) allopurinol 300 mg tablet 300 mg PO DAILY #90 tabs 09/19/23 atorvastatin 10 mg tablet 10 mg PO HS #90 tabs 09/19/23 blood-glucose meter,continuous #1 ea 09/19/23 (Dexcom G7 Serology Technician) blood-glucose sensor (Dexcom G7 #1 ea 09/19/23 Sensor device) losartan 100 1 tab PO DAILY #90 tabs 09/19/23 mg-hydrochlorothiazide 12.5 mg tablet metformin 1,000 mg tablet 1,000 mg PO BID #180 tabs 09/19/23 glipizide 2.5 mg tablet 2.5 mg PO DAILY #90 tabs 10/02/23 atenolol 100 mg tablet 100 mg PO HS 10/08/23 calcium carbonate 200 mg calcium 200 mg PO ONCE 10/13/23 (500 mg) chewable tablet (Tums) Current Visit Medications: Current Medications Generic Name Dose Route Start Last Admin Trade Name Freq PRN Reason Stop Dose Admin Ringer's Solution 1,000 mls @ 80 mls/hr 10/13/23 06:00 10/13/23 07:00 IV 11/09/23 23:59 80 mls/hr INFUSION SANDRITA Administration Cefazolin Sodium/Dextrose 2 gm in 50 mls @ 100 mls/hr 10/13/23 06:00 Ancef Duplex IVPB 10/13/23 16:00 PREOP SANDRITA IV Miscellaneous Supplies 1 each 10/13/23 06:00 Iv Access IV 11/09/23 23:59 DIRECTED SANDRITA Sodium Chloride 0 ml 10/13/23 06:00 Normal Saline Flush 10 Ml Syr IV 11/09/23 23:59 PRN PRN Sodium Chloride 0 ml 10/13/23 06:00 Normal Saline 10 Ml Vial IJ 11/09/23 23:59 DIRECTED PRN Sterile Water 0 ml 10/13/23 06:00 Water,Injection,Sterile 10 Ml Vial IJ 11/09/23 23:59 DIRECTED PRN PFSH Active Problems Active Problems: Problem Status Onset Code Encounter for screening colonoscopy Z12.11 Diabetes mellitus type 2 in nonobese E11.9 Impacted cerumen, left ear H61.22 Gout M10.9 Cerumen impaction H61.20 Perioral dermatitis L71.0 Ganglion M67.40 Sensorineural hearing loss (SNHL) of both ears H90.3 Elevated PSA R97.20 Hematuria R31.9 Tubular adenoma D36.9 Diabetes E11.9 Benign prostatic hyperplasia N40.0 Hypertension I10 Hyperlipidemia E78.5 Medical History Medical History (Updated 10/13/23 @ 07:09 by Sivakumar James MD) Benign prostatic hyperplasia S/P TURP 09/15. PSA went to 3-4 from 8 s/p TURP. No FU PSA since then. Elevated PSA Hx 8, reduced to 3-4 post TURP (08/2018) Surgical History Surgical History S/P colonoscopy (~06/2023) History of shoulder surgery Left - Repair Dislocation S/P TURP (~2018) Tobacco Smoking/Tobacco Use Status: Never Passive smoking exposure: No Alcohol Alcohol Intake: current Alcohol intake frequency: a few times a month Alcohol type: beer and wine Substance Use Substance use: Never Substance use type: does not use Vital Signs and Lab Results Vital Signs Most Recent Vital Signs in EMR: Most Recent Vital Signs Temp Pulse Resp BP Pulse Ox 36.4 C L 43 L 15 133/88 96 10/13/23 06:33 10/13/23 06:33 10/13/23 06:33 10/13/23 06:33 10/13/23 06:33 Lab Results Blood Type / Crossmatch: No Data to Display Complete Blood Count: No Data to Display Complete Metabolic Panel: No Data to Display Liver Function Panel: No Data to Display Coagulation Panel: No Data to Display Cardiac Panel: No Data to Display Arterial Blood Gas: No Data to Display Venous Blood Gas: No Data to Display Pancreas Panel: No Data to Display Thyroid Panel: No Data to Display Infectious Disease: No Data to Display Blood Cultures: No Data to Display Toxicology Panel: No Data to Display Anesthesia Assessment and Plan Anesthesia History Personal History: No History of Anesthesia Complications Family History: No Family History of Anesthesia Complications Exercise Tolerance Exercise Tolerance: Metabolic Equivalents>4 Pertinent Negatives Pertinent Negatives: No Major Cardiovascular Symptoms or Complaints and No Major Pulmonary Symptoms or Complaints Cardiac & Pulmonary Exam Cardiac Exam: Normal S1/S2 Heart Sounds Pulmonary Exam: Clear Bilateral Breath Sounds Implantable Cardiac Device Does patient have a Pacemaker or an ICD?: No Airway Exam Known Difficult Airway: No Mallampati Class: 2 Mouth Opening: Normal (> 3cm) Thyromental Distance: Greater than 3 cm Neck Range of Motion: Full ROM Neck Circumference: Normal Teeth Condition: Normal Dentition ASA Classification ASA Score: ASA 2 Emergency Case?: No NPO Status NPO Status: NPO Clears >2 hours, Solids >8 hours Anesthesia Plan Resuscitation Status: Full Code Anesthesia Technique: General Anesthesia Airway Planned: Endotracheal Tube (Some active GERD symptoms) Monitors Used: Standard Monitors
[2023-10-13] MEDS: ceFAZolin 2 GM/50 ML BAG IVPB (07:46)
[2023-10-13] MEDS: Omnipaque 300 MG/ML 50 ML BTL (08:00)
[2023-10-13] MEDS: Lidocaine 2% Jelly 11 ML SYR (08:00)
--- NOTE | 2023-10-13 08:12 | BLADDER_PTH ---
PATIENT: Leonard Steven LOC: [facility] U#:[id number] AGE/SX: 63/M ROOM: RE10/13/[address]: Sivakumar James MD : 1960 BED: DIS: 10/13/2023 SPEC #: [id number] RECD: 10/13/23 12:50 STATUS: WENDY REQ #: [id number] ROCCO: 10/13/23 08:[address]: Sivakumar James DEPT: Surgical Specimen RECD BY: Rachna Parkinson ENTERED: 10/13/23 12:51 SP TYPE: Bladder OTHR DR: Yoan Dorsey DO Tissues: 1 - BLADDER BIOPSY Procedures: GROSS AND MICRO LEVEL 4 Comments: [id number]
--- NOTE | 2023-10-13 08:22 | DI.RAD_ITS ---
Exam(s) XR RETROGRADE IN OR EXAM: XR RETROGRADE IN OR CLINICAL HISTORY: Hematuria. TECHNIQUE: Fluoroscopy was provided for the referring physician for guidance with performing retrogr chika procedure. COMPARISON: US US RENAL from 09/05/2023 FINDINGS: Please see procedure note for details. Fluoro time: 44.5 seconds RADIATION DOSE DELIVERED: myrtle Patricia=12.71 mGy
--- NOTE | 2023-10-13 08:28 | ROE_ITS ---
Date of service: 10/13/23 Time of Service: 08:28 Operative Note Operative Note DATE OF PROCEDURE: 10/13/23 PRE-OP DIAGNOSIS: Hematuria POST-OP DIAGNOSIS: same PROCEDURE: cystoscopy, bilateral retrograde pyelogram, TUR Bladder neck tissue, fulguration of bleeders SURGEON: Sivakumar James ANESTHESIA TYPE: Local By Surgeon and General LMA/ETT Refer to Anesthesia Record ESTIMATED BLOOD LOSS: 5 PATHOLOGY: other (bladder neck tissue) COMPLICATIONS: None Patient was transported to: PACU Patient's condition: stable Implants: none Indications: This is a 63-year-old gentleman who has a history of lower urinary tract symptoms and an elevated PSA. He underwent transurethral resection of his prostate. 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 He has been monitored with PSA levels and symptom checks every 6 months. He has had intermittent episodes of gross hematuria with clots. He had a negative workup in 2019. Since the hematuria has persisted, he comes in for a repeat workup. He has had a renal ultrasound that showed no significant abnormalities in the kidneys. Findings: normal retrograde pyelograms edematous tissue right bladder neck Procedure Description: The patient was given preoperative antibiotics and brought to the operating room on 10/13/2023. After successful induction of general anesthesia, he was placed in the dorsal lithotomy position. His genitalia was prepped and draped. 2% Xylocaine jelly was instilled into the urethra to act as a local anesthetic. A 22 Surinamese rigid cystoscope was passed through the urethra into the bladder. The urethra and bladder were inspected with a 30 degree lens. The pendulous, bulbar and membranous urethra all appeared normal with no strictures. The prostatic urethra showed evidence of a previous transurethral resection. The right lobe of the prostate was quite a bit larger than the left. There was some inflammatory polypoid appearing tissue at the right bladder neck. The remainder of the bladder showed no papillary or nodular lesions. Each ureteral orifice was cannulated with a 5 Surinamese access catheter. Retrograde pyelograms were obtained by injecting Omnipaque through the access catheter under fluoroscopic guidance. No filling defects were identified in the ureters or kidneys. Both sides drained promptly on the 5-minute drainage film. The cystoscope was then withdrawn and a 24 Surinamese resectoscope sheath was passed through the urethra into the bladder. Transurethral biopsies of the bladder neck tissue were taken and the tissue was sent to pathology for permanent section. The bladder neck area was fulgurated using coagulation current. Any additional prominent blood vessels on the right lobe of the prostate were cauterized as well. At the completion of the procedure, no active bleeding was seen. The bladder was emptied and the resectoscope was removed. The patient tolerated this procedure well with no complications.
--- NOTE | 2023-10-13 08:44 | W.PM.DSUDISC ---
Date of service: 10/13/23 Time of Service: 08:44 Discharge Plan Disposition Patient Disposition: Home Discharge Details Reason For Visit: cystoscopy Attending Provider: Sivakumar James Primary Care Provider: Yoan Dorsey Home Meds and New Rx's Prescriptions: No Action coenzyme Q10 125 mg capsule 125 mg PO BID omega 4-oet-fjy-fish oil 1,000 mg (120 mg-180 mg) capsule 2 cap PO BID multivitamin Tablet 1 tab PO DAILY Rx Instructions: Dog License Officer Supervisor multivitamin and mineral supplement Prostate 2.4 1,200-15-35 tybh-aviz-pvl capsule 1 cap PO DAILY B-12 with Magnesium 1 tab PO DIRECTED Prostate SR 160-250 mg capsule 1 cap PO BID (DME) blood sugar diagnostic Strip See Rx Instructions .ROUTE .MEDSUPPLY Qty: 100 3RF Rx Instructions: E11.9 to test Blood sugar daily to maintain HGB AIC <7, dispense brand paid by insurance (DME) Dexcom G6 Transmitter Device See Rx Instructions .Route Qty: 1 6RF Rx Instructions: As directed allopurinol 300 mg tablet 300 mg PO DAILY Qty: 90 3RF atorvastatin 10 mg tablet 10 mg PO HS Qty: 90 3RF (DME) Dexcom G7 Seamer Elastic Band Misc See Rx Instructions .Route Qty: 1 1RF Rx Instructions: As directed. DX: E11.9, to keep HbA1c below 6.5% (DME) Dexcom G7 Sensor Device See Rx Instructions .Route Qty: 1 6RF Rx Instructions: As directed As directed. DX: E11.9, to keep HbA1c below 6.5% losartan-hydrochlorothiazide 100-12.5 mg tablet 1 tab PO DAILY Qty: 90 3RF metformin 1,000 mg tablet 1,000 mg PO BID Qty: 180 3RF glipizide 2.5 mg tablet 2.5 mg PO DAILY Qty: 90 3RF acetaminophen [Acetaminophen Extra Strength] 500 mg tablet 500 mg PO ONCE atenolol 100 mg tablet 100 mg PO HS calcium carbonate [Tums] 200 mg calcium (500 mg) tablet,chewable 200 mg PO ONCE Discharge Instructions Additional Instructions: followup 1 to 2 weeks for biopsy results (can be telehealth if pt prefers) Discharge Orders Discharge Orders: Discharge Order (Routine); Ordered 10/13/23 Ordered By: Sivakumar James DS: Diagnosis Discharge Diagnosis (1) Hematuria: Status: Acute (2) Prostate cancer: Status: Chronic
--- NOTE | 2023-10-13 09:15 | W.ANESPOSTOP ---
Postoperative Evaluation Date, Time and Location Date Performed: 10/13/23 Time Performed: 08:45 Patient Location: PACU Vital Signs Most Recent Imported Vital Signs: Most Recent Vital Signs Temp Pulse Resp BP Pulse Ox 36.0 C L 44 L 13 129/81 94 10/13/23 08:50 10/13/23 08:50 10/13/23 08:50 10/13/23 08:50 10/13/23 08:50 Pain Score Most Recent Pain Score: Most Recent Pain Score Pain Level 0 10/13/23 08:50 Assessment Mental Status: Awake (Alert & Oriented to Patient Baseline) Airway and Respiratory Function: Patent airway with normal (patient baseline) respiratory exam Cardiovascular Function: Hemodynamically Stable Hydration Status: Adequately Hydrated Nausea & Vomiting: No Nausea or Vomiting Pain: Pt. Denies Any Pain Peripheral Nerve Block: Patient did not receive a nerve block
[2023-10-13] MEDS: Phenazopyridine 200 MG TAB PO (09:35)
== END 2023-10-13 10:15 | disposition home or self-care (01) ==
PROVIDERS: PCP Family Medicine; Visit Provider Urology
PROC: (CPT 74450; principal; 2023-10-13 07:30)
PROC: 0TBB8ZZ Excision of Bladder, Via Natural or Artificial Opening Endoscopic (ICD-10-PCS; CPT 52204; 2023-10-13 07:30)
DX: R31.0 Gross hematuria (principal); N32.89 Other specified disorders of bladder; Z85.46 Personal history of malignant neoplasm of prostate
CPT/HCPCS: 52204; 52005; 88305; 74420; J0690; J1100; J1885; J2001; J2704; Q9967

== ENCOUNTER 2024-02-18 01:23 | Outpatient (CLI) | payer BC, SELFPAY ==
[2024-02-20 16:28] LABS: PSA, Ultrasensitive 3.2 ng/mL (<= 4.5)
== END 2024-02-18 01:24 | disposition home or self-care (01) ==
LOC: LBO 01:23
PROVIDERS: PCP Family Medicine; Visit Provider Nurse Practitioner Gerontology
DX: R97.20 Elevated prostate specific antigen [PSA] (principal); N40.0 Benign prostatic hyperplasia without lower urinary tract symptoms; C61 Malignant neoplasm of prostate
CPT/HCPCS: 36415; 84153

== ENCOUNTER 2024-03-20 18:39 | Emergency (ER) | payer BC, SELFPAY ==
--- OUTSIDE RECORDS SUMMARY | 2024-03-20 18:44 | XMS_ITS | Encounter Summary ---
Author Organization [facility] [place] [address] Care Team Providers Care Shellfish Harvester Name Role Phone Unavailable Primary Care Provider Unavailabl e Reason for Visit * Reason Comments Eye Exam Encounter Details Date Type Department Care Team (Late st Contact Info) Description 08/13/2021 10:20 AM EST Office Visit Ophthalmology at [facility] [place] [address] Theresa Lu, [facility] [place] [address] Diabetic eye exam; Glaucoma suspect of both eyes; Combined forms of age-related cataract of both eyes; Hx of LASIK; Astigmatism of both eyes with presbyopia Social History Tobacco Use Types Packs/Day Years Used Date Smoking Tobacco: Never Smokeless Tobacco: Never Alcohol Use Standard Drinks/Week Comments Not Currently 0 (1 standard drink = 0.6 oz pur e alcohol) Sex and Gender Information Value Date Recorded Sex Assigned at Not on file Gender Identity Not on file Sexual Orientation Not on file documented as of this encounter Progress Notes * Theresa Lu, OD - 08/13/2021 10:20 AM EST Encounter Diagnoses Name Primary? Diabetic eye exam ??? Glaucoma suspect of both eyes ??? Combined forms of age-related cataract of both eyes ??? Hx of LASIK ??? Astigmatism of both eyes with presbyopia Leonard Steven is a 61 y.o. with the following ophthalmic problems: Assessment and Plan: DM II, No retinopathy OU, No DME OU - Advised BG control with diet, exercise, & meds per PCP recommendations. Glaucoma suspect secondary to borderline to large cup to disc ratio, IOP high normal OD/OS. OCT normal OD, borderline OS. Documented with photos. - RTC 12 months for HVF 24-2, CEE. - Pt will fax records from prior eye exams. Cataracts OU - Monitor for now, sooner with changes in vision. Hx of LASIK OU - Noted. Refractive Error OU - Rx given today - Findings and concerns discussed with Leonard and he expressed understanding. -Upon Return CEE & VF 24-2 in 1 year, sooner with changes in sx/vision. Eyeglass Final Rx Eyeglass Final Rx Sphere Cylinder [place] Dist VA Add Near VA Right -2.75 +0.50 055 20/20-1 +2.50 20/20 Left -3.50 +0.50 070 20/25-1 +2.50 20/20 Expiration Date: 08/14/2023 documented in this encounter Plan of Treatment Not on file documented as of this encounter Procedures Procedure Name Priority Date/Time Associated Diagnosis Comments OCT OPTIC NERVE - OU - BOTH EYES Routine 08/13/2021 12:30 PM EST Diabetic eye exam Glaucoma suspect of both eyes FUNDUS PHOTOS - OU- BOTH EYES Routine 08/13/2021 12:15 PM EST Diabetic eye exam documented in this encounter Results * Oct Optic Nerve - OU - Both Eyes (08/13/2021 12:30 PM EST) Anatomical Region Laterality Modality Other Narrative 08/13/2021 12:30 PM EST OCT RNFL OD: Reliable, within normal limits all quadrants. 86 OS: Reliable, borderline nasal, within normal limits all quadrants. 83 Macula OD: Reliable, normal foveal pit. OS: Reliable, normal foveal pit. Theresa Lu OD OPHTHALMOLOGY SERVIC ES ORDERABLES * Fundus Photos - OU - Both Eyes (08/13/2021 12:15 PM EST) Anatomical Region Laterality Modality Other Narrative 08/13/2021 12:15 PM EST Posterior pole: nerves & macula as clinically described OD/OS. Theresa Lu OD OPHTHALMOLOGY SERVIC ES ORDERABLES documented in this encounter Visit Diagnoses Diagnosis Diabetic eye exam Examination of eyes and vision Glaucoma suspect of both eyes Preglaucoma, unspecified Combined forms of age-related cataract of both eyes Other and combined forms of senile cataract Hx of LASIK Other states following surgery of eye and adnexa Astigmatism of both eyes with presbyopia documented in this encounter
--- OUTSIDE RECORDS SUMMARY | 2024-03-20 18:44 | XMS_ITS | Encounter Summary ---
Author Organization [facility] Address [address] [place] [address] Care Team Providers Care Development Spec Name Role Phone Yoan Dorsey DO Primary Care Provider [phone] Encounter Details Date Type Department Care Team (Late st Contact Info) Description 01/10/2021 Lab Requisition [facility] Pathology & Laboratory Medicine - [facility] [address], [place] [id number] Outr Resulting Lab, Provider Social History Tobacco Use Types Packs/Day Years Used Date Smoking Tobacco: Never Assessed Interpersonal Safety Answer Date Record ed Physically Hurt Never 03/16/2020 Verbally Threaten Not on file 03/16/2020 Sex and Gender Information Value Date Recorded Sex Assigned at Not on file Gender Identity Not on file Sexual Orientation Not on file documented as of this encounter Plan of Treatment Not on file documented as of this encounter Procedures Procedure Name Priority Date/Time Associated Diagnosis Comments PSA TOTAL, DIAGNOSTIC Routine 01/10/2021 14:24 EDT documented in this encounter Results * PSA TOTAL, DIAGNOSTIC (01/10/2021 14:24 EDT) PSA 2.9 0.0 - 4.5 ng/mL 01/10/2021 22:19 EDT [facility] Blood VENOUS BLOOD / Unknown 01/10/2021 14:24 EDT 01/10/2021 20:51 EDT Narrative [facility] - 01/10/2021 22:19 EDT NOTE: Serum PSA concentration should not be interpreted as absolute evidence for the presence or absence of malignant disease. Assayed on Siemens ADVIA Centaur XPT using chemiluminescent technology.??Values obtained by using different assay methods cannot be used interchangeably. Provider Outr Resulting Lab CHEMISTRY & BLOOD GAS ORDERABLES [facility] [address] [place] [address] documented in this encounter Visit Diagnoses Not on filedocumented in this encounter Care Teams Development Spec Relationship Specialty Start Date End Date Yoan Dorsey DO [address] [place] [address] PCP - General 07/28/19 documented as of this encounter
--- OUTSIDE RECORDS SUMMARY | 2024-03-20 18:44 | XMS_ITS | Encounter Summary ---
Author Organization [facility] Address [address] [place] [address] Care Team Providers Care [facility] Name Role Phone Yoan Dorsey DO Primary Care Provider [phone] Encounter Details Date Type Department Care Team (Late st Contact Info) Description 06/29/2020 Lab Requisition [facility] Pathology & Laboratory Medicine - [facility] [address] [place] [address] Sivakumar James MD [address] [place] [address] [place] [address] Encounter for other general examination Social History Tobacco Use Types Packs/Day Years [...] Procedure Name Priority Date/Time Associated Diagnosis Comments SURGICAL PATHOLOGY Today 06/29/2020 14 :34 EST Encounter for other general examination documented in this encounter Results * SURGICAL PATHOLOGY (06/29/2020 14:34 EST) Final Diagnosis A. URINARY BLADDER, BIOPSY: - Flat urothelial lining with mildly reactive changes. - Subepithelial small blood vascular congestion. - Negative for significant inflammation, dysplasia and divya malignancy. - Muscularis propria identified; negative for malignancy. 07/04/2020 9:42 EST [facility] Diagnosis Comment Deeper sections were also examined. 07/04/2020 9:42 [facility] Attestation By the signature below, the attending physician certifies that they have 1) personally conducted a gross and/or microscopic examination of the described specimen(s), and/or personally interpreted the results of laboratory testing of the described specimen(s), and 2) personally rendered or confirmed the above diagnosis. 07/04/2020 9:42 [facility] at 0942 Clinical History Gross hematuria 07/04/2020 9:42 [facility] Gross Description A. Received in formalin labelled with proper patient identification (initials W, M) and bladder Bx is a single fragment of pink tissue (0.2 x 0.2 x 0.2 cm). The specimen is submitted in A1. JENNIFER ALEGRIA(ASCP) 06/30/2020 7:30 07/04/2020 9:42 [facility] Performing Lab [facility] 07/04/2020 9:42 [facility] Scanned Images 07/04/2020 9:42 [facility] Tissue URINARY BLADDER BIOPSY SPECIMEN / Unknown 06/29/2020 14:34 EST 06/29/2020 23:35 EST Sivakumar James MD PATHOLOGY ORDERAB LES [facility] [address] [place] [address] documented in this encounter Visit Diagnoses Diagnosis Encounter for other general examination documented in this encounter Care Teams [facility] Relationship Specialty Start Date End Date Yoan Dorsey DO [address] [place] [address] PCP - General 07/28/19 documented as of this encounter
--- OUTSIDE RECORDS SUMMARY | 2024-03-20 18:44 | XMS_ITS | Encounter Summary ---
Author Organization [facility] Address [address] [place] [address] Care Team Providers Care Scaler Name Role Phone Yoan Dorsey DO Primary Care Provider [phone] Encounter Details Date Type Department Care Team (Late st Contact Info) Description 06/26/2020 Lab Requisition [facility] Pathology & Laboratory Medicine - [facility] [address] [place] [address] Outr Resulting Lab, Provider Social History Tobacco [...] Procedure Name Priority Date/Time Associated Diagnosis Comments DO NOT ORDER STANDALONE - BROAD COVID TEST Today 06/26/2020 13:15 EST COVID-19 TESTING Routine 06/26/2020 13:1 5 EST documented in this encounter Results * DO NOT ORDER STANDALONE - BROAD COVID TEST (06/26/2020 13:15 EST) COVID-19 rt-PCR Result NEGATIVE Negative 06/27/2020 20:10 EST [facility] Comment: 2019-novel Coronavirus (2019-nCoV) not detected by the qRT-PCR assay. Consider testing for other respiratory viruses or re-collecting for 2019-nCoV testing. Note: Optimum timing for peak viral levels during infections caused by 2019-nCoV have not been determined. Collection of multiple specimens from the same patient may be necessary to detect the virus. Limitations Positive results are indicative of active infection with SARS-CoV-2 but do not rule out bacterial infection or co-infection with other viruses. The agent detected may not be the definite cause of disease. In addition, detection of viral RNA may not indicate the presence of infectious virus or that SARS-CoV-2 is the causative agent for clinical symptoms. Negative results do not preclude SARS-CoV-2 infection and should not be used as the sole basis for patient management decisions. Negative results must be combined with clinical observations, patient history, and epidemiological information. False negative results may also occur if amplification inhibitors are present in the specimen or if inadequate numbers of organisms are present in the specimen. Optimum specimen types and timing for peak viral levels during infections caused by SARS-CoV-2 have not been fully determined. Collection of multiple specimens (types and time points) from the same patient may be necessary to detect the virus. The test was validated for use with upper respiratory specimens obtained via nasopharyngeal or oropharyngeal swabs in VTM, UTM, M4, M5, M6, saline, and MTM media. The performance of this test has not been established for other specimens. Specimens collected using other FDA recommended Specimen Collection Materials listed in the FDA COVID-19 Diagnostic [employer] communication (October 21, 2019) are processed with the caveat that they were not all validated for use with this test and the result must be interpreted in this context. Furthermore, a false negative results may occur if a specimen is improperly collected, transported or handled. If the virus mutates in the RT-PCR target region, SARS-CoV-2 may not be detected or may be detected less predictably. Inhibitors or other types of interference may produce a false negative result. An interference study evaluating the effect of common cold medications was not performed. This test is not FDA-cleared but its performance characteristics were established by our CLIA-certified, CAP-accredited, high complexity laboratory in accordance with CLIA regulations, College of [place] [employer]ologists (CAP) guidelines (Oct 14, 2019), and FDA guidance (Sep 25, 2019). This test is only for use under the Food and Drug Administration's Emergency Use Authorization. Swab ENTIRE NASOPHARYNX / Unknown 06/26/2020 13:15 EST 06/26/2020 20:43 EST Provider Outr Resulting Lab MICROBIOLOGY - GENERAL ORDERABLES [facility] [place], [place] * COVID-19 TESTING (06/26/2020 13:15 EST) COVID-19 rt-PCR Result NEGATIVE Negative 06/27/2020 21:07 EST [facility] Comment: 2019-novel Coronavirus (2019-nCoV) not detected by the qRT-PCR assay. Consider testing for other respiratory viruses or re-collecting for 2019-nCoV testing. Note: Optimum timing for peak viral levels during infections caused by 2019-nCoV have not been determined. Collection of multiple specimens from the same patient may be necessary to detect the virus. Limitations Positive results are indicative of active infection with SARS-CoV-2 but do not rule out bacterial infection or co-infection with other viruses. The agent detected may not be the definite cause of disease. In addition, detection of viral RNA may not indicate the presence of infectious virus or that SARS-CoV-2 is the causative agent for clinical symptoms. Negative results do not preclude SARS-CoV-2 infection and should not be used as the sole basis for patient management decisions. Negative results must be combined with clinical observations, patient history, and epidemiological information. False negative results may also occur if amplification inhibitors are present in the specimen or if inadequate numbers of organisms are present in the specimen. Optimum specimen types and timing for peak viral levels during infections caused by SARS-CoV-2 have not been fully determined. Collection of multiple specimens (types and time points) from the same patient may be necessary to detect the virus. The test was validated for use with upper respiratory specimens obtained via nasopharyngeal or oropharyngeal swabs in VTM, UTM, M4, M5, M6, saline, and MTM media. The performance of this test has not been established for other specimens. Specimens collected using other FDA recommended Specimen Collection Materials listed in the FDA COVID-19 [employer] communication (October 21, 2019) are processed with the caveat that they were not all validated for use with this test and the result must be interpreted in this context. Furthermore, a false negative results may occur if a specimen is improperly collected, transported or handled. If the virus mutates in the RT-PCR target region, SARS-CoV-2 may not be detected or may be detected less predictably. Inhibitors or other types of interference may produce a false negative result. An interference study evaluating the effect of common cold medications was not performed. This test is not FDA-cleared but its performance characteristics were established by our CLIA-certified, CAP-accredited, high complexity laboratory in accordance with CLIA regulations, [employer] [place] [employer] (CAP) guidelines (Oct 14, 2019), and FDA guidance (Sep 25, 2019). This test is only for use under the Food and Drug Administration's Emergency Use Authorization. Performing Lab [facility] 06/27/2020 21:07 EST [facility] Swab 06/26/2020 13:1 5 EST 06/26/2020 20:43 EST Provider Outr Resulting Lab MICROBIOLOGY - GENERAL ORDERABLES [facility] [address] [place] [address] [facility] [place] documented in this encounter Visit Diagnoses Not on filedocumented in this encounter Care Teams Scaler Relationship Specialty Start Date End Date Yoan Dorsey DO [address] [place] [address] PCP - General 07/28/19 documented as of this encounter
--- OUTSIDE RECORDS SUMMARY | 2024-03-20 18:44 | XMS_ITS | Encounter Summary ---
Author Organization [facility] Address [address] [place] [address] Care Team Providers Care Blower Installer Name Role Phone Yoan Dorsey DO Primary Care Provider [phone] Encounter Details Date Type Department Care Team (Late st Contact Info) Description 10/13/2023 Lab Requisition [facility] Pathology [facility] Laboratory Medicine - [facility] [address] [place] [address] Sivakumar James MD [address] [place] [address] [place] [address] Malignant neoplasm of prostate (HCC-CMS); Hematuria, unspecified Social History Tobacco Use Types Packs/Day Years [...] Date/Time Associated Diagnosis Comments SURGICAL PATHOLOGY Today 10/13/2023 8: 12 EDT Malignant neoplasm of prostate (HCC-CMS) Hematuria, unspecified documented in this encounter Results * SURGICAL PATHOLOGY (10/13/2023 8:12 EDT) Note to Patient The following pathology results have been interpreted by your pathologist and may be available to you before your health provider has had the opportunity to review them. Please allow time for your provider to receive these results and explore management options, if applicable. 10/17/2023 6:15 [facility] Final Diagnosis A. URINARY BLADDER, NECK, BIOPSY: - Polypoid/nodular urothelial mucosa with reactive urothelium. - No high-grade dysplasia/carcinoma in situ or divya malignancy. - Subepithelial capillary/blood vascular congestion. - Prominent fibromuscular soft tissue. 10/17/2023 6:15 [facility] Diagnosis Comment This case has been presented and reviewed at the intradepartmental consultation conference. Deeper levels of (A1) have been examined. 10/17/2023 6:15 [facility] Attestation By the signature below, the attending physician certifies that they have 1) personally conducted a gross and/or microscopic examination of the described specimen(s), and/or personally interpreted the results of laboratory testing of the described specimen(s), and 2) personally rendered or confirmed the above diagnosis. 10/17/2023 6:15 [facility] at 0615 Clinical History Hematuria 10/17/2023 6:15 [facility] Gross Description A. Received in formalin labelled with proper patient identification (initials W, M) and 1. Bladder neck are 3 richardson-white to brown tissues (0.5 x 0.2 x 0.1 cm to 0.4 x 0.2 x 0.1 cm). Entirely submitted in A1. Alison Sow 10/14/2023 7:49 10/17/2023 6:15 T [facility] Performing Lab [facility] 10/17/2023 6:15 T [facility] Scanned Images 10/17/2023 6:15 [facility] Tissue SPECIMEN FROM URINARY BLADDER / Unknown 10/13/2023 8:12 EDT 10/13/2023 17:46 EDT Sivakumar James MD PATHOLOGY ORDERAB LES [facility] [address] [place] [address] documented in this encounter Visit Diagnoses Diagnosis Malignant neoplasm of prostate (HCC-CMS) Malignant neoplasm of prostate Hematuria, unspecified documented in this encounter Care Teams Blower Installer Relationship Specialty Start Date End Date Yoan Dorsey DO [address] [place] [address] PCP - General 07/28/19 documented as of this encounter
--- OUTSIDE RECORDS SUMMARY | 2024-03-20 18:44 | XMS_ITS | Encounter Summary ---
Author Organization [facility] Address [address] [place] [address] Care Team Providers Care Automotive Airconditioning Mechanic Name Role Phone Yoan Dorsey DO Primary Care Provider [phone] Encounter Details Date Type Department Care Team (Late st Contact Info) Description 01/30/2023 Lab Requisition [facility] Pathology & Laboratory Medicine - [facility] [address] [place], [place] [address] Outr Resulting Lab, Provider Social History Tobacco [...] Associated Diagnosis Comments PSA TOTAL, DIAGNOSTIC Routine 01/29/2023 15:35 EDT documented in this encounter Results * PSA TOTAL, DIAGNOSTIC (01/29/2023 15:35 EDT) PSA 3.1 <=4.5 ng/mL 01/30/2023 20:05 EDT [facility] Blood VENOUS BLOOD / Unknown 01/29/2023 15:35 EDT 01/30/2023 17:58 EDT Narrative [facility] - 01/30/2023 20:05 EDT NOTE: Serum PSA concentration should not be interpreted as absolute evidence for the presence or absence of malignant disease. Assayed on Siemens ADVIA Centaur XPT using chemiluminescent technology.??Values obtained by using different assay methods cannot be used interchangeably. Provider Outr Resulting Lab CHEMISTRY & BLOOD GAS ORDERABLES [facility] [address] [place] [address] documented in this encounter Visit Diagnoses Not on filedocumented in this encounter Care Teams Automotive Airconditioning Mechanic Relationship Specialty Start Date End Date Yoan Dorsey DO [address] [facility] [place] [address] PCP - General 07/28/19 documented as of this encounter
--- OUTSIDE RECORDS SUMMARY | 2024-03-20 18:44 | XMS_ITS | Encounter Summary ---
Author Organization Health system Address [address] [place] [address] Care Team Providers Care Crystal Slicer Name Role Phone Yoan Dorsey DO Primary Care Provider [phone] Encounter Details Date Type Department Care Team (Late st Contact Info) Description 01/16/2022 Lab Requisition [facility] Pathology & Laboratory Medicine - [facility] [address] [place], [place] [address] Outr Resulting Lab, Provider Social History Tobacco [...] Associated Diagnosis Comments PSA TOTAL, DIAGNOSTIC Routine 01/16/2022 12:22 EDT documented in this encounter Results * PSA TOTAL, DIAGNOSTIC (01/16/2022 12:22 EDT) PSA 3.6 <=4.5 ng/mL 01/16/2022 22:59 EDT [facility] Blood VENOUS BLOOD / Unknown 01/16/2022 12:22 EDT 01/16/2022 21:57 EDT Narrative [facility] - 01/16/2022 22:59 EDT NOTE: Serum PSA concentration should not be interpreted as absolute evidence for the presence or absence of malignant disease. Assayed on Siemens ADVIA Centaur XPT using chemiluminescent technology.??Values obtained by using different assay methods cannot be used interchangeably. Provider Outr Resulting Lab CHEMISTRY & BLOOD GAS ORDERABLES [facility] [address] [place] [address] documented in this encounter Visit Diagnoses Not on filedocumented in this encounter Care Teams Crystal Slicer Relationship Specialty Start Date End Date Yoan Dorsey DO [address] [facility] [place] [place] [address] PCP - General 07/28/19 documented as of this encounter
--- OUTSIDE RECORDS SUMMARY | 2024-03-20 18:44 | XMS_ITS | Encounter Summary ---
Author Organization [facility] Address [address] [place] [address] Care Team Providers Care Wind Farm Designer Name Role Phone Yoan Dorsey DO Primary Care Provider [phone] Encounter Details Date Type Department Care Team (Late st Contact Info) Description 03/13/2020 Lab Requisition [facility] Pathology & Laboratory Medicine - [address] [address] Monica Frazier MD [address] [place] [id number] Encounter for screening for malignant neoplasm of colon Social History Tobacco Use Types Packs/Day Years [...] Date/Time Associated Diagnosis Comments SURGICAL PATHOLOGY Today 03/13/2020 12 :27 EDT Encounter for screening for malignant neoplasm of colon documented in this encounter Results * SURGICAL PATHOLOGY (03/13/2020 12:27 EDT) Final Diagnosis A. COLON, ASCENDING, POLYP, BIOPSY: - Tubular adenoma. B. COLON, TRANSVERSE, POLYP, BIOPSY: - Fragments of tubular adenoma. C. COLON, DESCENDING, POLYP, BIOPSY: - Suggestive of hyperplastic polyp. D. COLON, SIGMOID, POLYP, BIOPSY: - Tubular adenoma. E. RECTUM, POLYP, BIOPSY: - Tubular adenoma. 03/15/2020 10:50 [facility] Attestation There was significant resident/fellow involvement in the diagnostic evaluation of this case. By the signature below, the attending physician certifies that they have personally conducted a gross and/or microscopic examination of the described specimens and rendered or confirmed the above diagnosis. 03/15/2020 10:50 [facility] at 1050 Clinical History Screening for colon cancer 03/15/2020 10:50 [facility] Gross Description A. Received in formalin labelled with proper patient identification (initials W, M) and ascending colon polyp is a single fragment of richardson tissue (0.4 x 0.3 x 0.2 cm). The specimen is submitted entirely in A1. B. Received in formalin labelled with proper patient identification (initials W, M) and transverse colon polyp are multiple fragments of richardson-brown tissue ranging from 0.2-0.4 cm in greatest dimension. The specimens are submitted entirely in B1-B2. C. Received in formalin labelled with proper patient identification (initials W, M) and descending colon polyp is a single fragment of richardson-brown tissue (0.3 x 0.3 x 0.2 cm). The specimen is submitted entirely in C1. D. Received in formalin labelled with proper patient identification (initials W, M) and sigmoid colon polyp are 3 fragments of richardson-brown tissue measuring 0.2 cm and 0.3 cm in greatest dimension. The specimens are submitted entirely in D1. E. Received in formalin labelled with proper patient identification (initials W, M) and rectal polyp are 2 fragments of richardson polypoid tissue measuring 0.3 cm and 0.5 cm in greatest dimension. The specimens are submitted entirely in E1. 03/14/2020 8:45 03/15/2020 10:50 [facility] Resident/Rocco w: Wei Carter MD 03/15/2020 10:50 [facility] Performing Lab [facility] 03/15/2020 10:50 [facility] Scanned Images 03/15/2020 10:50 [facility] Tissue SPECIMEN FROM RECTUM / Unknown 03/13/2020 12:27 EDT 03/13/2020 23:27 EDT Tissue specimen (specimen) TRANSVERSE COLON STRUCTURE / Unknown 03/13/2020 12:27 EDT 03/13/2020 23:27 EDT Tissue specimen (specimen) DESCENDING COLON STRUCTURE / Unknown 03/13/2020 12:27 EDT 03/13/2020 23:27 EDT Tissue specimen (specimen) SIGMOID COLON STRUCTURE / Unknown 03/13/2020 12:27 EDT 03/13/2020 23:27 EDT Tissue specimen (specimen) SPECIMEN FROM RECTUM / Unknown 03/13/2020 12:27 EDT 03/13/2020 23:27 EDT Monica Frazier MD PATHOLOGY ORDERA SHAN[facility] [address] [place] [address] documented in this encounter Visit Diagnoses Diagnosis Encounter for screening for malignant neoplasm of colon Special screening for malignant neoplasms, colon documented in this encounter Care Teams Wind Farm Designer Relationship Specialty Start Date End Date Yoan Dorsey DO [address] [place] [address] PCP - General 07/28/19 documented as of this encounter
--- OUTSIDE RECORDS SUMMARY | 2024-03-20 18:44 | XMS_ITS | Referral Summary ---
Author Organization [facility] Address [address] [place] [address] Care Team Providers Care Paint Spray Tender Name Role Phone Yoan Dorsey DO Primary Care Provider [phone] Social History Tobacco Use Types Packs/Day Years Used Date Smoking Tobacco: Never Assessed Interpersonal Safety Answer Date Record ed Physically Hurt Never 03/16/2020 Verbally Threaten Not on file 03/16/2020 Sex and Gender Information Value Date Recorded Sex Assigned at Not on file Gender Identity Not on file Sexual Orientation Not on file Plan of Treatment Not on file Procedures Procedure Name Priority Date/Time Associated Diagnosis Comments HEPATITIS C AB W REFLEX TO HCV RNA BY PCR Routine 01/16/2022 12:22 EDT from Last 3 Months or Most Recently Relevant to Health Maintenance Results * HEPATITIS C AB W REFLEX TO HCV RNA BY PCR (01/16/2022 12:22 EDT) Hep C Antibody Negative Negative 01/17/2022 9:[address] [facility] Blood VENOUS BLOOD / Unknown 01/16/2022 12:22 EDT 01/16/2022 21:57 EDT Provider Outr Resulting Lab CHEMISTRY & BLOOD GAS ORDERABLES [facility] [address] [place] [address] from Last 3 Months or Most Recently Relevant to Health Maintenance Care Teams Paint Spray Tender Relationship Specialty Start Date End Date Yoan Dorsey DO [address] [place] [address] PCP - General 07/28/19
--- OUTSIDE RECORDS SUMMARY | 2024-03-20 18:44 | XMS_ITS | Encounter Summary ---
Author Organization [facility] [place] [address] Care Team Providers Care Explosive Specialist Name Role Phone Unavailable Primary Care Provider Unavailabl e Reason for Visit * Reason Onset Date Comments Bumped Appointment 08/10/2021 Encounter Details Date Type Department Care Team (Late st Contact Info) Description 08/10/2021 [place] [address] Theresa Lu OD [facility] [place] [address] Bumped Appointment Social History Tobacco Use Types Packs/Day Years Used Date Smoking Tobacco: Never Assessed Sex and Gender Information Value Date Recorded Sex Assigned at Not on file Gender Identity Not on file Sexual Orientation Not on file documented as of this encounter Miscellaneous Notes * Telephone Encounter - Clarissa Aiken - 08/10/2021 2:15 PM EST Rescheduled * Telephone Encounter - Mandi Mays - 08/10/2021 1:28 PM ESTSummary: [facility] BORIS INTERIANO Ryan patten for Pt requesting a return call to [facility] BMP: 08/20/21 Aly MONKE. Available Dates: 08/13/21 @ 8AM Thurs: 08/16/21 @ 10:40 Fri 08/17 @ 7:40 Fri 09/07@ 10:40 Wed 2/16 @ 8:00, 10:40 Thurs 09/13 @ 10:40 3:40 Frid 09/14 @ 8: 10:40 3:40 documented in this encounter Plan of Treatment Not on file documented as of this encounter Visit Diagnoses Not on filedocumented in this encounter
--- OUTSIDE RECORDS SUMMARY | 2024-03-20 18:44 | XMS_ITS | Encounter Summary ---
Author Organization [facility] Address [address] [place] [address] Care Team Providers Care Frame Tender Name Role Phone Yoan Dorsey DO Primary Care Provider [phone] Encounter Details Date Type Department Care Team (Late st Contact Info) Description 08/19/2022 Lab Requisition [facility] Pathology & Laboratory Medicine - [facility] [address] [place], [place] [address] Outr Resulting Lab, Provider Social History Tobacco [...] Associated Diagnosis Comments PSA TOTAL, DIAGNOSTIC Routine 08/19/2022 9:39 EST documented in this encounter Results * PSA TOTAL, DIAGNOSTIC (08/19/2022 9:39 EST) PSA 3.5 <=4.5 ng/mL 08/19/2022 17:19 EST [facility] Blood VENOUS BLOOD / Unknown 08/19/2022 9:39 EST 08/19/2022 16:34 EST Narrative [facility] - 08/19/2022 17:19 EST NOTE: Serum PSA concentration should not be interpreted as absolute evidence for the presence or absence of malignant disease. Assayed on Siemens ADVIA Centaur XPT using chemiluminescent technology.??Values obtained by using different assay methods cannot be used interchangeably. Provider Outr Resulting Lab CHEMISTRY & BLOOD GAS ORDERABLES [facility] [address] [place] [address] documented in this encounter Visit Diagnoses Not on filedocumented in this encounter Care Teams Frame Tender Relationship Specialty Start Date End Date Yoan Dorsey DO [address] [place] [address] PCP - General 07/28/19 documented as of this encounter
--- OUTSIDE RECORDS SUMMARY | 2024-03-20 18:44 | XMS_ITS | Encounter Summary ---
Author Organization [facility] Address [address] [place] [address] Care Team Providers Care Avionics Manager Name Role Phone Yoan Dorsey DO Primary Care Provider [phone] Encounter Details Date Type Department Care Team (Late st Contact Info) Description 01/16/2022 Lab Requisition [facility] Pathology & Laboratory Medicine - [facility] [address] [place] [address] Outr Resulting Lab, Provider Social History Tobacco [...] RNA BY PCR Routine 01/16/2022 12:22 EDT documented in this encounter Results * HEPATITIS C AB W REFLEX TO HCV RNA BY PCR (01/16/2022 12:22 EDT) Hep C Antibody Negative Negative 01/17/2022 9:14 EDT [facility] Blood VENOUS BLOOD / Unknown 01/16/2022 12:22 EDT 01/16/2022 21:57 EDT Provider Outr Resulting Lab CHEMISTRY & BLOOD GAS ORDERABLES [facility] [address] [place] [address] documented in this encounter Visit Diagnoses Not on filedocumented in this encounter Care Teams Avionics Manager Relationship Specialty Start Date End Date Yoan Dorsey DO [address] [place] [address] PCP - General 07/28/19 documented as of this encounter
--- OUTSIDE RECORDS SUMMARY | 2024-03-20 18:44 | XMS_ITS | Clinical Summary ---
Author Organization [facility] Address [address] [place] [address] Care Team Providers Care Turret Press Operator Name Role Phone Yoan Dorsey DO Primary Care Provider [phone] Social History Tobacco Use Types Packs/Day Years Used Date Smoking Tobacco: Never Assessed Interpersonal Safety Answer Date Record ed Physically Hurt Never 03/16/2020 Verbally Threaten Not on file 03/16/2020 Sex and Gender Information Value Date Recorded Sex Assigned at Not on file Gender Identity Not on file Sexual Orientation Not on file Plan of Treatment Health Maintenance Due Date Last Done Comments RSV Immunization ( o r 60+ Years) (1 - 1-dose 60+ series) 2018 Fall Risk Screening 2023 COVID-19 Vaccine ( season) 2023 Hepatitis C Screen Completed 01/16/2022 Procedures Procedure Name Priority Date/Time Associated Diagnosis Comments HEPATITIS C AB W REFLEX TO HCV RNA BY PCR Routine 01/16/2022 12:22 EDT from Last 3 Months or Most Recently Relevant to Health Maintenance Results * HEPATITIS C AB W REFLEX TO HCV RNA BY PCR (01/16/2022 12:22 EDT) Hep C Antibody Negative Negative 01/17/2022 9:14 EDT [facility] Blood VENOUS BLOOD / Unknown 01/16/2022 12:22 EDT 01/16/2022 21:57 EDT Provider Outr Resulting Lab CHEMISTRY & BLOOD GAS ORDERABLES [facility] [address] [place] [address] from Last 3 Months or Most Recently Relevant to Health Maintenance Care Teams Turret Press Operator Relationship Specialty Start Date End Date Yoan Dorsey DO [address] [place] [address] PCP - General 07/28/19
--- OUTSIDE RECORDS SUMMARY | 2024-03-20 18:44 | XMS_ITS | Encounter Summary ---
Author Organization [facility] Address [address] [place] [address] Care Team Providers Care Heating Equipment Installer Name Role Phone Yoan Dorsey DO Primary Care Provider Encounter Details Date Type Department Care Team (Late st Contact Info) Description 04/11/2020 Lab Requisition [facility] Pathology & Laboratory Medicine - [address] [address] Outr Resulting Lab, Provider Social History Tobacco [...] Associated Diagnosis Comments PSA TOTAL, DIAGNOSTIC Routine 04/11/2020 7:54 EDT documented in this encounter Results * PSA TOTAL, DIAGNOSTIC (04/11/2020 7:54 EDT) PSA 2.6 0.0 - 4.5 ng/mL 04/11/2020 17:35 EDT [facility] Blood VENOUS BLOOD / Unknown 04/11/2020 7:54 EDT 04/11/2020 15:45 EDT Narrative [facility] - 04/11/2020 17:35 EDT NOTE: Serum PSA concentration should not be interpreted as absolute evidence for the presence or absence of malignant disease. Assayed on Siemens ADVIA Centaur XPT using chemiluminescent technology.??Values obtained by using different assay methods cannot be used interchangeably. Provider Outr Resulting Lab CHEMISTRY & BLOOD GAS ORDERABLES [facility] [address] [place] [address] documented in this encounter Visit Diagnoses Not on filedocumented in this encounter Care Teams Heating Equipment Installer Relationship Specialty Start Date End Date Yoan Dorsey DO [address] [place] [address] PCP - General 07/28/19 documented as of this encounter
--- OUTSIDE RECORDS SUMMARY | 2024-03-20 18:44 | XMS_ITS | Clinical Summary ---
Author Organization [facility] Address [facility] [place] [address] Care Team Providers Care Ice Puller Name Role Phone Unavailable Primary Care Provider Unavailabl e Allergies Active Allergy Reactions Criticality Noted Date Comments Iodine And Iodide Containing Products 08/13/2021 Medications Medication Sig Dispensed Refills Start Date End Date Status atenoloL (Tenormin) 100 mg Tablet 100 mg. 08/02/2021 Active atorvastatin (Lipitor) 10 mg Tablet 10 mg. 08/04/2021 Active losartan-hydrochlor othiazide (HYZAAR) 100-12.5 mg Tablet 100 tablets. 08/04/2021 Acti ve metFORMIN (Glucophage) 500 mg Tablet Take 500 mg by mouth 2 times daily. 08/02/2021 Active Dexcom G6 Vending Mechanic Misc USE PER SENIOR CATERING SALES MANAGER INSTRUCTIONS 05/31/2021 Active multivitamin Capsule Take 1 capsule by mouth daily. Active cholecalciferol, Vitamin D3, (cholecalciferol, Vitamin D3,) 50 mcg (2,000 unit) Capsule Take by mouth. Active cyanocobalamin, Vitamin B-12, (Vitamin B-12) 100 mcg Tablet Take 100 mcg by mouth daily. Active Active Problems No known active problems Immunizations Name Administration Dates Next Due Moderna Covid-19 Monovalent 12Yr+ (Web Portal Developer 100mcg) 05/18/2021,11/14/2020,10/17/2020 Family History Medical History Relation Comments Diabetes Father Heart Disease Father Cancer Maternal Grandfather Cancer Maternal Grandmother Cancer Mother Relation Status Comments Father Maternal Grandfather Maternal Grandmother Mother Social History Tobacco Use Types Packs/Day Years [...] Health Maintenance Due Date Last Done Comments CT Colonography 1958 Colonoscopy 1958 Colorectal Cancer Screening 1958 FIT DNA 1958 FIT 1958 Sigmoidoscopy (10 year) with FIT yearly 1958 Sigmoidoscopy 1958 Hepatitis C Screening 01/28/1976 Tdap adult 1977 Tetanus vaccine 1977 Zoster vaccine (1 of 2) 01/28/2008 Advance Directive 2013 Pneumoccocal Vaccine: 65+ (1 of 1 - PCV) 2023 Covid-19 Vaccine (4 - 2022- season) 2023 05/18/2021, 11/14/2020, 10/17/2020 Influenza (Flu) vaccine (1 o f 1 - Influenza standard series) 03/28/2024
--- NOTE | 2024-03-20 19:00 | DI.RAD_ITS ---
Exam(s) XR SHOULDER LT COMPLETE 2+V EXAM: XR SHOULDER LT COMPLETE 2+V CLINICAL HISTORY: pain. TECHNIQUE: 2D digital imaging was performed. Three views. COMPARISON: No exams were available for comparison FINDINGS: BONES: No acute fracture is present. No bony destructive lesion is seen. JOINTS: No dislocation present. The AC joint is unremarkable. There are severe degenerative changes at the glenohumeral joint. Prominent spurring at the inferior humeral head. There are large loose body seen at the inferior glenohumeral joint. Postsurgical changes noted at the glenoid. SOFT TISSUE: Normal. IMPRESSION: Degenerative changes and large inferior glenohumeral joint space loose bodies. No acute abnormality. DATA REPOSITORY: RADIATION DOSE DELIVERED:
[2024-03-20 19:01] VITALS: BP 151/89; PULSE 53; RESP 12; TEMP 36.4; O2SAT 96
[2024-03-20 20:14] VITALS: BP 155/87; PULSE 66; RESP 15; TEMP 36.6; O2SAT 95
--- NOTE | 2024-03-20 21:10 | W.ED.GENAD ---
Discharge Plan Disposition Patient Disposition: Home Condition: Stable Discharge Details Clinical Impression: Injury of muscle of thorax Primary Care Provider: Yoan Dorsey ED Provider: Wm Vasquez Home Meds and New Rx's Prescriptions: New cyclobenzaprine 10 mg tablet 10 mg PO TID PRNQty: 20 0RF Continued aspirin [Adult Aspirin Regimen] 81 mg tablet,delayed release (DR/EC) 81 mg PO DAILY colchicine 0.6 mg tablet 0.6 mg PO BID PRN (Reason: gout attack) Qty: 14 3RF Rx Instructions: 2 tabs first dose; continue at least 3 days or until attack subsides coenzyme Q10 125 mg capsule 125 mg PO BID omega 8-atv-wlu-fish oil 1,000 mg (120 mg-180 mg) capsule 2 cap PO BID multivitamin Tablet 1 tab PO DAILY Rx Instructions: Top Coater multivitamin and mineral supplement Prostate 2.4 1,200-15-35 nbsu-ijxt-ybv capsule 1 cap PO DAILY B-12 with Magnesium 1 tab PO DIRECTED Prostate SR 160-250 mg capsule 1 cap PO BID berberine-herbal comb no.18 Capsule 1 cap PO DAILY (DME) blood sugar diagnostic Strip See Rx Instructions .ROUTE .MEDSUPPLY Qty: 100 3RF Rx Instructions: E11.9 to test Blood sugar daily to maintain HGB AIC <7, dispense brand paid by insurance allopurinol 300 mg tablet 300 mg PO DAILY Qty: 90 3RF atorvastatin 10 mg tablet 10 mg PO HS Qty: 90 3RF losartan-hydrochlorothiazide 100-12.5 mg tablet 1 tab PO DAILY Qty: 90 3RF metformin 1,000 mg tablet 1,000 mg PO BID Qty: 180 3RF glipizide 2.5 mg tablet 2.5 mg PO DAILY Qty: 90 3RF acetaminophen [Acetaminophen Extra Strength] 500 mg tablet 500 mg PO ONCE atenolol 100 mg tablet 100 mg PO HS calcium carbonate [Tums] 200 mg calcium (500 mg) tablet,chewable 200 mg PO ONCE Discharge Instructions Additional Instructions: Your x-ray did not show any concerning findings. He likely strained or pulled a muscle in the chest wall. Follow-up with your primary care provider if not improving in 1 to 2 weeks If you feel more ill or have new symptoms such as severe difficulty breathing return to the emergency department for reevaluation HPI General Mode of arrival: ambulatory. Date/Time Provider Initiated Documentation: 03/20/24 19:14. Limitations to Documentation: no limitations. Information obtained by: patient. History of Present Illness 64 year old M presents to the emergency department with the chief complaint of left chest wall/shoulder pain, described as moderate, Quality is described as aching, Patient reports no radiation. Patient started experiencing this hour(s) (4) and it has been constant. No relieving factors improve symptom(s), No exacerbating factors reported . Patient notes no other symptoms.. Patient did receive the following treatments prior to arrival, NSAID Related Data Home Medications ?Medication ?Instructions ?Recorded ?Confirmed C5-S-ilnsv-soy 1 cap PO DAILY 08/16/19 03/20/24 wnsec-smuczqqikq-tmaqurat 1,200 unit-15 unit-35 mcg cap (Prostate 2.4) coenzyme Q10 125 mg capsule 125 mg PO BID 08/16/19 03/20/24 multivitamin 1 tab PO DAILY 08/16/19 03/20/24 omega 5-mnk-ulz-fish oil 1,000 mg 2 cap PO BID 08/16/19 03/20/24 (120 mg-180 mg) capsule blood sugar diagnostic #100 ea 01/27/20 03/20/24 B-12 with Magnesium 1 tab PO DIRECTED 02/05/21 03/20/24 saw palmetto fruit extract 160 1 cap PO BID 02/19/22 03/20/24 mg-phytosterol cmb.no.2 250 mg capsule (Prostate SR) acetaminophen 500 mg tablet 500 mg PO ONCE 07/24/23 03/20/24 (Acetaminophen Extra Strength) allopurinol 300 mg tablet 300 mg PO DAILY #90 tabs 09/19/23 03/20/24 atorvastatin 10 mg tablet 10 mg PO HS #90 tabs 09/19/23 03/20/24 losartan 100 1 tab PO DAILY #90 tabs 09/19/23 03/20/24 mg-hydrochlorothiazide 12.5 mg tablet metformin 1,000 mg tablet 1,000 mg PO BID #180 tabs 09/19/23 03/20/24 glipizide 2.5 mg tablet 2.5 mg PO DAILY #90 tabs 10/02/23 03/20/24 atenolol 100 mg tablet 100 mg PO HS 10/08/23 03/20/24 calcium carbonate (Tums) 200 mg PO ONCE 10/13/23 03/20/24 berberine-herbal comb no.18 capsule 1 cap PO DAILY Lower blood sugar 11/13/23 03/20/24 and LDL aspirin 81 mg tablet,delayed 81 mg PO DAILY 03/18/24 03/20/24 release (Adult Aspirin Regimen) colchicine 0.6 mg tablet 0.6 mg PO BID PRN gout attack #14 03/18/24 03/20/24 tabs cyclobenzaprine 10 mg tablet 10 mg PO TID PRN #20 tabs 03/20/24 Previous Rx's ?Medication ?Instructions ?Recorded blood sugar diagnostic #100 ea 01/27/20 allopurinol 300 mg tablet 300 mg PO DAILY #90 tabs 09/19/23 atorvastatin 10 mg tablet 10 mg PO HS #90 tabs 09/19/23 losartan 100 1 tab PO DAILY #90 tabs 09/19/23 mg-hydrochlorothiazide 12.5 mg tablet metformin 1,000 mg tablet 1,000 mg PO BID #180 tabs 09/19/23 glipizide 2.5 mg tablet 2.5 mg PO DAILY #90 tabs 10/02/23 colchicine 0.6 mg tablet 0.6 mg PO BID PRN gout attack #14 03/18/24 tabs cyclobenzaprine 10 mg tablet 10 mg PO TID PRN #20 tabs 03/20/24 Allergies Allergy/AdvReac Type Severity Reaction Status Date / Time crab Allergy Severe Anaphylaxsi Verified 03/20/24 19:05 s shrimp Allergy Severe Anaphylaxsi Verified 03/20/24 19:05 s iodine Allergy Other (See Verified 03/18/24 10:18 Comment) IVP Dye Allergy Severe Anaphylaxsi Uncoded 03/20/24 19:05 s Lobster Allergy Severe Anaphylaxsi Uncoded 03/20/24 19:05 s General Stated Complaint: Orthopedic ELLA: 3 Review of Systems All systems reviewed & are unremarkable except as noted in HPI and below Constitutional Constitutional: Denies chills, Denies fever(s) and Denies weakness Cardiovascular Cardiovascular: Denies chest pain and Denies dyspnea Respiratory Respiratory: Denies cough and Denies dyspnea Gastrointestinal Gastrointestinal: Denies abdominal pain, Denies nausea and Denies vomiting Musculoskeletal Musculoskeletal: Denies joint swelling Neurologic Neurologic: Denies weakness Exam Const General: no acute distress Orientation: alert HENMT Head: normal to inspection Ears: external ears normal General nose exam: external nose normal Mouth: moist mucous membranes Eyes General: appearance normal, both eyes and all related structures Neck Neck: normal visual inspection Resp Effort & Inspection: normal respiratory effort and able to speak in complete sentences Cardio Rate: regular rate Skin General skin exam: no rashes or lesions noted Neuro General: patient alert and patient oriented x3 Extrem General: normal to inspection, full ROM and capillary refill normal Psych Mental Status: mental status grossly normal Course Vital Signs Vital signs: Vital Signs Temperature 36.4 C L 03/20/24 19:01 Pulse 53 L 03/20/24 19:01 Respiratory Rate 12 03/20/24 19:01 Blood Pressure 151/89 H 03/20/24 19:01 Pulse Oximetry 96 03/20/24 19:01 Temperature 36.6 C 03/20/24 20:14 Temperature Source Tympanic 03/20/24 20:14 Pulse 66 03/20/24 20:14 Respiratory Rate 15 03/20/24 20:14 Respiratory Effort Normal 03/20/24 19:08 Blood Pressure 155/87 H 03/20/24 20:14 Pulse Oximetry 95 03/20/24 20:14 Oxygen Delivery Method Room Air 03/20/24 20:14 Oxygen Flow Rate 0 03/20/24 20:14 Pain Level 8 03/20/24 20:14 Comment L shoulder-ibuprofen 400 mg around 1700 03/20/24 19:01 Medical Decision Making 64-year-old male comes in with left shoulder and chest wall pain. He says it started after he was showering and is not sure how he injured it. He denies any falls or significant trauma. He notes no fevers or chills. No chest pain or difficulty breathing. He localizes the pain just inferior to the left shoulder. He has reproducible left tenderness in this area full range of motion of the shoulder, intact distal sensation and pulses. He has clear lung sounds. Suspect muscle strain given lack of trauma, x-rays taken prior to my exam showed no acute findings of the shoulder. Discussed with him and will provide a short course of a muscle relaxer and he will follow-up with his primary care provider if not improving. Return precautions given Differential Diagnosis Differential Diagnosis: Muscle spasm, muscle strain Quality:SDOH Health Related Social Needs: No Data to Display PFSH All Active Problems (Updated 03/20/24 @ 21:11 by Wm Vasquez MD) Injury of muscle of thorax (Acute) Gout attack (Acute) Prostate cancer (Chronic) Encounter for screening colonoscopy (Acute) Diabetes mellitus type 2 in nonobese (Acute) Impacted cerumen, left ear (Acute) Gout (Chronic) Cerumen impaction (Acute) Perioral dermatitis (Acute) Ganglion (Acute) Sensorineural hearing loss (SNHL) of both ears (Acute) Hematuria (Acute) Gross (but tiny) x2 04/01, 04/04/20. [ ] MicroUA, PSA Tubular adenoma (Acute) colo per Dr. Frazier 03/13/20 Diabetes (Chronic) Hypertension (Chronic) Hyperlipidemia (Acute) Medical History (Updated 03/20/24 @ 21:11 by Wm Vasquez MD) Benign prostatic hyperplasia S/P TURP 09/15. PSA went to 3-4 from 8 s/p TURP. No FU PSA since then. Elevated PSA Hx 8, reduced to 3-4 post TURP (08/2018) Surgical History S/P colonoscopy (~06/2023) History of shoulder surgery Left - Repair Dislocation S/P TURP (~2018) Family History Mother Substance abuse Breast cancer & Uterine Cancer Lung cancer Father Substance abuse Diabetes Heart disease Hypertension Maternal Grandfather Lung cancer Social History (Updated 07/17/23 @ 12:41 by JENNIFER Jean) Smoking/Tobacco Use Status: Never Smoking risk assessment performed?: Yes Alcohol Intake: current Alcohol Intake frequency: holidays/special occasions only Alcohol type: beer and wine Drug use: Never Substance use type: does not use Adopted: No Caregiver/Support person: No Foster care: No Household members: spouse and children Housing: house Number of Children: 2 number of grandchildren: 0 Communication Needs: Hard of Hearing and Corrective Lenses Education Level: college Details: BS Degree Do you need help understanding health information?: Rarely current occupation: [employer], [employer] Pets and animals: Yes (Dog-Yohannes) Pets and animals: dog(s) Sexually active: Yes Do you think of yourself as: straight/heterosexual Current gender identity: male What is your relationship status?: living with partner How often do you talk on the phone with friends or family?: once per week Panel score (0-1 are the most socially isolated patients): 1 What type of physical activity do you participate in: bicycling, weight lifting and other Details: rowing Duration: 30-45 minutes/day Frequency: 3-4 times per week Sera/[employer]ar[employer]: [employer] Special sera needs: No Seatbelt use: always Helmet use: Yes Drive intox or ride w/intox racecar driver: No Working smoke detector in home: Yes Fire extinguisher in home: Yes Carbon monox detector in home: Yes Firearms in home: Yes Firearms unloaded and locked: Yes Do you feel safe at home: Yes Do you feel safe in your relationship?: Yes Additional Social history: unable to assess privately
--- NOTE | 2024-03-20 21:12 | DI.VRAD_ITS ---
PROCEDURE INFORMATION: Exam: XR Left Shoulder Exam date and time: 03/20/2024 7:55 PM Age: 64 years old Clinical indication: Pain; Shoulder; Left TECHNIQUE: Imaging protocol: Radiologic exam of the left shoulder. Views: 2 or more views. COMPARISON: No relevant prior studies available. FINDINGS: Bones/joints: There is joint space narrowing of the glenohumeral articulation. Large loose bodies are noted. Postsurgical changes seen involve the glenoid rim. There is eburnation of bone of the glenohumeral articulation. Soft tissues: Normal. IMPRESSION: Severe degenerative changes. Loose body formation noted. Dictated and Authenticated by: Lesli Tovar MD. Ordering:SANDEE Burk MD
[2024-03-20 21:43] VITALS: BP 109/74; PULSE 78; RESP 16; TEMP 36.8; O2SAT 98
[2024-03-20] MEDS: Cyclobenzaprine 10 MG TAB, 3 TABS/BTL PO (21:43)
== END 2024-03-20 21:51 | disposition home or self-care (01) ==
PROVIDERS: Emergency Provider Emergency Medicine; PCP Family Medicine
DX: S29.8XXA Other specified injuries of thorax, initial encounter (principal); X58.XXXA Exposure to other specified factors, initial encounter; Z79.82 Long term (current) use of aspirin
CPT/HCPCS: 99283; 73030

== ENCOUNTER 2024-10-05 03:04 | Outpatient (CLI) | payer BC, SELFPAY ==
[2024-10-06 18:26] LABS: PSA, Ultrasensitive 3.7 ng/mL (<= 4.5)
== END 2024-10-05 03:05 | disposition home or self-care (01) ==
PROVIDERS: PCP Family Medicine; Visit Provider Nurse Practitioner Gerontology
DX: C61 Malignant neoplasm of prostate (principal); R31.9 Hematuria, unspecified; R97.20 Elevated prostate specific antigen [PSA]; N40.0 Benign prostatic hyperplasia without lower urinary tract symptoms
CPT/HCPCS: 36415; 84153

== ENCOUNTER 2025-04-14 04:21 | Outpatient (CLI) | payer MEDICARE, SELFPAY ==
[2025-04-14 08:31] LABS: Calculated LDL 86 mg/dL (<100); Cholesterol 140 mg/dL (<200); HDL Cholesterol 34 mg/dL (>or=40); Triglyceride 100 mg/dL (<150)
== END 2025-04-14 04:22 | disposition home or self-care (01) ==
PROVIDERS: PCP Family Medicine; Visit Provider Nurse Practitioner Gerontology
DX: E78.5 Hyperlipidemia, unspecified (principal); I10 Essential (primary) hypertension; C61 Malignant neoplasm of prostate; R31.9 Hematuria, unspecified
CPT/HCPCS: 36415; 80061; 84153

== ENCOUNTER → 2025-04-21 08:27 | Outpatient (BNVA) | payer MEDICARE, SELFPAY | PROVIDERS: PCP Family Medicine; Visit Provider Nurse Practitioner Gerontology | DX: C61 Malignant neoplasm of prostate (principal); R31.9 Hematuria, unspecified; N40.0 Benign prostatic hyperplasia without lower urinary tract symptoms | CPT/HCPCS: 99213; 81002 ==

== ENCOUNTER 2025-04-21 09:15 | Outpatient (REF) | payer MEDICARE, SELFPAY ==
[2025-04-21 09:54] LABS: Glucose Negative (Negative)
[2025-04-21 10:05] LABS: C & S Indicated? No; RBC 20-50 HPF (0-2); WBC 0-2 HPF (0-5)
== END 2025-04-21 09:16 | disposition home or self-care (01) ==
LOC: LBN 09:15
PROVIDERS: PCP Family Medicine; Visit Provider Nurse Practitioner Gerontology
DX: R31.29 Other microscopic hematuria (principal)
CPT/HCPCS: 81003; 81015